=== PATIENT | female | born 1950 | race Two or more races ===

== ENCOUNTER 2024-11-18 16:09 | Emergency (ER) | payer OTHER, SELFPAY ==
[2024-11-18 16:42] VITALS: BP 94/58; PULSE 96; RESP 20; TEMP 37.3; O2SAT 90
--- NOTE | 2024-11-18 16:47 | EKG_ITS ---
[facility] Test Date: 2024-11-18 Pat Name: JOVANY REYES Department: Room: - Gender: Female Staff Physical Therapist: : 1950 Requested By: Earlene Barrett ([facility]) [facility] Order Number: [id number] Reading MD: Earlene Barrett ([facility]) [facility] Measurements Intervals [place] Rate: 94 P: 62 NC: 158 QRS: -42 QRSD: 113 T: 85 QT: 373 QTc: 467 Interpretive Statements SINUS RHYTHM LEFT AXIS DEVIATION [QRS AXIS < -30] INCOMPLETE RIGHT BUNDLE BRANCH BLOCK [90+ ms QRS DURATION, TERMINAL R IN V1/V2, 40+ ms S IN I/aVL/V4/V5/V6] SEPTAL MYOCARDIAL INFARCTION , PROBABLY OLD [40+ ms Q WAVE IN V1/V2] Compared to ECG 07/15/2021 10:59:02 Left-axis deviation now present Myocardial infarct finding still present /store/S0/[id number]/[id number]
--- NOTE | 2024-11-18 16:47 | XR_ITS ---
Examination: CT brain head without contrast. 2-D sagittal coronal reconstructions Date and time of exam:November 18, 2024 1808 hours INDICATIONS: Altered mental status today CTDI: vol (mGy):43.3 DLP: (mGycm):865 Technique: Multiple CT axial sections of the brain have been obtained, 5 mm slice thickness. Contrast has not been administered. 2-D sagittal, coronal reconstructions have been obtained Low dose protocols were performed. One or more of the following dose reduction techniques were used; automated exposure control, adjustment of the mA and/or KV according to patient size, use of iterative reconstruction technique. Findings: No significant ventricular enlargement. Calcification in the right caudate nucleus and left basal ganglia Intra-axial or extra-axial hemorrhage density is not seen. No mass effect or midline shift Basal cisterns are not remarkable. Fourth ventricle is midline. Cranial vault intact. Impression: Negative for acute hemorrhage, mass effect or midline shift Advise clinical correlation and follow up accordingly
--- NOTE | 2024-11-18 16:48 | PD.EDRME ---
Rapid Medical Screening Exam RME Arrival date/time: 11/18/24 16:09 74-year-old female presents to the emergency department accompanied with family members for complaints of generalized weakness, dizziness uncontrolled glucose x 3 days. I have greeted and performed a focused initial assessment of this patient. Initial appropriate labs ordered at this time. A comprehensive ED assessment and evaluation of the patient and analysis of all test and completion of medical decision making process will be conducted by additional ED provider. Chief Complaint: General Adult/Misc Complain Time Seen by Provider: 11/18/24 16:31 Vital signs: Vital Signs Temperature 99.1 F 11/18/24 16:42 Pulse Rate 96 11/18/24 16:42 Respiratory Rate 20 11/18/24 16:42 Blood Pressure 94/58 L 11/18/24 16:42 Pulse Oximetry (%) 90 L 11/18/24 16:42 Oxygen Delivery Method Room Air 11/18/24 16:42
[2024-11-18 16:54] VITALS: BP 107/61
[2024-11-18 17:26] VITALS: BMI 23.8
[2024-11-18 17:26] LABS: Lactate (Lactic Acid) 1.1 mMol/L (0.4-2.0)
[2024-11-18 17:28] LABS: Basophils # (Auto) 0.1 Thou/mm3 (0.0-0.2); Basophils % (Auto) 1 % (0-2.5); Eosinophils % (Auto) 0 % (0-10); Hematocrit 30.3 % (36.0-46.0); Hemoglobin 10.6 g/dL (12.0-16.0); Immature Granulocytes % (Auto) 1 % (0-0); Immature Granulocytes Auto 0.07 Thou/mm3 (0.00-0.00); Lymphocytes # (Auto) 0.6 Thou/mm3 (1.0-4.8); Lymphocytes % (Auto) 7 % (10-50); Mean Corpuscular Hemoglobin 28.1 pg (25.0-35.0); Mean Corpuscular Volume 80 fL (80-100); Monocytes # (Auto) 0.5 Thou/mm3 (0.0-0.8); Monocytes % (Auto) 5 % (0-12); Neutrophils # (Auto) 8.5 Thou/mm3 (1.8-7.7); Neutrophils % (Auto) 87 % (37-80); Nucleated Red Blood Cell % 0 /100 WBC (0); Platelet Count 225 Thou/mm3 (140-440); RDW Standard Deviation 39.6 fL (36.4-46.3); Red Blood Count 3.77 Miln/mm3 (4.00-5.20); White Blood Count 9.8 Thou/mm3 (3.6-11.0)
--- NOTE | 2024-11-18 17:29 | EDNOTE_ITS ---
ED General RME/HPI General Chief complaint: General Adult/Misc Complain Stated complaint: BODY HURTS , UNABLE TO STAND, FEVER; SEEN BY PCP Time Seen by Provider: 11/18/24 16:31 Arrival date/time: 11/18/24 16:09 RME / HPI RME / HPI narrative: 74-year-old female patient with significant history of hypertension diabetes mellitus, came in for evaluation regarding generalized bodyaches, generalized body weakness, and chills. Patient was sent to us by PCP for further evaluation. Patient was also noted to be slightly confused earlier today denies any cough denies any abdominal pain denies any other complaints no medication was taken prior to arrival. Related Data Previous Rx's ?Medication ?Instructions ?Recorded cefuroxime axetil 500 mg tablet 500 mg PO BID #14 tabs 11/18/24 Allergies Allergy/AdvReac Type Severity Reaction Status Date / Time No Known Allergies Allergy Verified 11/18/24 16:13 Review of Systems Review of Systems Narrative Review of Systems: Review of system reviewed and within normal limits except mentioned in HPI ED Exam Narrative Physical exam: VITAL SIGNS: Reviewed. GENERAL APPEARANCE: Alert and interactive, follows commands, no acute distress, HEAD AND FACE: Non-traumatic. ENT: PERRL, pink conjunctivitis, eyelid no trauma, Mucous membrane moist. NECK: Supple, nontender, no nuchal rigidity. CHEST: No tenderness, no crepitus, no paradoxical movement, no retractions. LUNGS: Clear, well ventilated, symmetric, no rales, no wheezing, no ronchi, no stridor, good breath sounds bilaterally. HEART: Regular rate, regular rhythm, no murmur, no gallops. ABDOMEN: Soft, positive bowel sounds, nondistended, no guarding, nontender, no rebound, no masses, RECTAL: Deferred. GENITAL: Deferred. NEUROLOGICAL: Gross motor function intact sensory function intact, Appropriate for age. MUSCULOSKELETAL: low back nontender, full range of motion. EXTREMITIES: Nontender, full range of motion. SKIN: Color pink, dry, no rash, no lacerations, no abrasions, no contusions. LYMPHATICS: Deferred. Course Quality Measures none Orders Category Date Time Status Bedside Blood Glucose NOW Care 11/18/24 16:47 Active Bedside COVID-19 Antigen Test NOW Care 11/18/24 16:48 Active Bedside Influenza A&B Antigen Test NOW Care 11/18/24 16:48 Completed EKG (ED ONLY) *Do not use* NOW Care 11/18/24 16:47 Completed In and Out Catheter X1 Care 11/18/24 16:47 Active Insert IV NOW Care 11/18/24 16:47 Active NPO NOW Care 11/18/24 16:[address] head/brain wo con Stat Exams 11/18/24 16:47 Completed EKG (ED Only) Stat Exams 11/18/24 16:47 Draft Acetaminophen Stat Lab 11/18/24 17:05 Completed Alcohol, Blood Medical Stat Lab 11/18/24 17:05 Completed Ammonia Stat Lab 11/18/24 17:05 Completed Blood Culture (Lab) Stat Lab 11/18/24 17:10 Received CBC Stat Lab 11/18/24 17:05 Completed Comprehensive Metabolic Panel Stat Lab 11/18/24 17:05 Completed Drug Screen,Urine Stat Lab 11/18/24 19:45 Received Lactate (Lactic Acid) Stat Lab 11/18/24 17:05 Completed Procalcitonin Stat Lab 11/18/24 17:05 Completed Prothrombin Time with INR Stat Lab 11/18/24 17:05 Completed Troponin I Stat Lab 11/18/24 17:05 Completed Urinalysis Stat Lab 11/18/24 19:45 Completed Sodium Chloride 0.9% 1000 ml [Ns] 1,000 ml Med 11/18/24 17:29 Discontinued IV 999 mls/hr cefTRIAXone/D5w 1gm IV premix [Rocephin/D5w 1gm IV Med 11/18/24 20:18 Active premix] 1 gm in 50 ml IV X1 Vital Signs Vital signs: Vital Signs Temperature 99.1 F 11/18/24 16:42 Pulse Rate 96 11/18/24 16:42 Respiratory Rate 20 11/18/24 16:42 Blood Pressure 94/58 L 11/18/24 16:42 Pulse Oximetry (%) 90 L 11/18/24 16:42 Oxygen Delivery Method Room Air 11/18/24 16:42 [facility] Patient data External records reviewed:: None Clinical information provided by:: none Social determinants that could affect healthcare access:: none Patient has the following chronic illnesses:: Diabetes hypertension How is presenting disease/condition affected by chronic disease/condition?: e xacerbated by Evaluation data The following diagnostics were reviewed and interpreted by me:: lab results, radiology exam(s) and EKG tracing(s) Lab and/or radiology exams considered but not ordered:: None Interpretation Summary: See results in MDM Medications Medications considered but not ordered:: None Medication administrations:: Medication Administration History Ceftriaxone Sodium/Dextrose (Rocephin/D5w 1gm Iv Premix) 1 gm in 50 mls @ 100 mls/hr IV X1 ONE Stop: 11/18/24 20:47 Discontinued Medications Sodium Chloride (Ns) 1,000 mls @ 999 mls/hr IV .Q1H1M ONE Stop: 11/18/24 18:29 Last Admin: 11/18/24 18:32 Dose: 999 mls/hr Documented By: DB IV fluids, IV ceftriaxone Consultations Consultation(s) initiated? (list below): No Diagnosis Differential Diagnosis ED Complaint MDM: Generalized weakness, hypoglycemia, UTI Most likely diagnosis given after review of the tests above:: Generalized weakness, UTI Admission Indicated Admission indicated?: not indicated Explain why admission is indicated or not indicated:: Stable Admission Request Was there a request for admission?: No Disposition Plan Disposition Plan: Discharge Discharge Attestation Discharge Attestation: The patient and all family members were given an opportunity to ask questions and understood the discharge instructions. Discharge instructions specifically effects, indications for sooner follow up or return to the emergency department, and the expected course of current diagnosis. Patient condition: Stable Medical Decision Making MDM Narrative MDM Narrative: 74-year-old female patient with significant history of hypertension diabetes mellitus, came in for evaluation regarding generalized bodyaches, generalized body weakness, and chills. Patient was sent to us by PCP for further evaluation. Patient was also noted to be slightly confused earlier today denies any cough denies any abdominal pain denies any other complaints no medication was taken prior to arrival. CT scan of the head came back unremarkable. Laboratory workup all came back unremarkable except positive for UTI Pro-Mike slightly elevated creatinine is normal alkaline phos slightly elevated EKG showed normal sinus rhythm, ventricular rate of 94 bpm, no ST segment elevation depression noted. Family verbalized that patient was just recently started on Jardiance, and every time patient took the Jardiance patient was noted to be complaining of generalized weakness. I asked the family to stop taking the Jardiance until they discuss with the PCP. Patient received ceftriaxone IV. Patient appears nontoxic and hemodynamically stable. Patient discharged home and instructed to follow-up with primary care provider in 24 to 48 hours. Instructed to return to the emergency department immediately if worsening of symptoms Differential Diagnosis Differential Diagnosis: Generalized weakness, hypoglycemia, UTI Lab Data 11/18/24 17:05 11/18/24 17:05 Labs: Lab Results 11/18/24 11/18/24 Range/Units 17:05 19:45 WBC 9.8 (3.6-11.0) Thou/mm3 RBC 3.77 L (4.00-5.20) Miln/mm3 Hgb 10.6 L (12.0-16.0) g/dL Hct 30.3 L (36.0-46.0) % MCV 80 (80-100) fL MCH 28.1 (25.0-35.0) pg MCHC 35.0 (31.0-37.0) g/dl RDW Std Deviation 39.6 (36.4-46.3) fL Plt Count 225 (140-440) Thou/mm3 Neut % (Auto) 87 H (37-80) % Lymph % (Auto) 7 L (10-50) % Tripp % (Auto) 5 (0-12) % Eos % (Auto) 0 (0-10) % Baso % (Auto) 1 (0-2.5) % Neut # (Auto) 8.5 H (1.8-7.7) Thou/mm3 Lymph # (Auto) 0.6 L (1.0-4.8) Thou/mm3 Tripp # (Auto) 0.5 (0.0-0.8) Thou/mm3 Eos # (Auto) 0.0 (0.0-0.5) Thou/mm3 Baso # (Auto) 0.1 (0.0-0.2) Thou/mm3 Immature Gran # (Auto) 0.07 H (0.00-0.00) Thou/mm3 Absolute Nucleated RBC 0.00 (0.00-0.00) Thou/mm3 Immature Gran % 1 H (0-0) % Nucleated RBC % 0 (0) /100 WBC PT 13.2 H (9.0-12.2) Seconds INR 1.2 (0.9-1.3) Sodium 130 L (136-145) mMol/L Potassium 4.1 (3.4-5.1) mMol/L Chloride 101 (98-107) mMol/L Carbon Dioxide 21.2 (20.0-31.0) mMol/L Anion Gap 8 (7-16) BUN 17 (9-23) mg/dL Creatinine 0.9 (0.6-1.3) mg/dL Estim Creat Clear Calc 42.1 L (>60) mL/min eGFR > 60 (60 - ) See Note BUN/Creatinine Ratio 19 (12-20) Ratio Glucose 86 (74-106) mg/dL Calculated Osmolality 261 L (275-295) Lactic Acid 1.1 (0.4-2.0) mMol/L Calcium 8.7 (8.3-10.6) mg/dL Corrected Calcium 9.3 (8.5-10.1) mg/dL Total Bilirubin 0.5 (0.3-1.2) mg/dL AST 41 H (0-34) U/L ALT 20 (10-49) U/L Alkaline Phosphatase 221 H (46-116) U/L Ammonia < 10 L (11-32) uMol/L Troponin I 0.023 (0.0-0.045) ng/mL Total Protein 6.5 (5.7-8.2) gm/dL Albumin 3.3 L (3.4-4.8) gm/dL Globulin 3.2 (2.3-3.5) gm/dL Albumin/Globulin Ratio 1.0 L (1.2-2.2) Procalcitonin 1.50 H (0.0-0.49) ng/ml Ur Collection Type Clean Catch Urine Color Yellow (Lt Yel-Yel) Urine Clarity Clear (Clear/Hazy) Urine pH 6.0 (5.0-7.0) Ur Specific [place] 1.019 (1.001-1.035) Urine Protein Trace (Neg - Trace) Urine Glucose (UA) 4+ A (Negative) Urine Ketones 1+ A (Negative) Urine Blood Trace (Negative) Urine Nitrite Negative (Negative) Urine Bilirubin Negative (Negative) Urine Urobilinogen (Auto) Negative (0.0-1.0) mg/dL Ur Leukocyte Esterase Positive (Negative) Urine RBC 4 H (0-3) /hpf Urine WBC 11 H (0-5) /hpf Ur Squamous Epith Cells 3 (0-5) /hpf Urine Bacteria 1+ A (None) Acetaminophen < 2.0 L (10.0-20.0) mcg/mL Ethyl Alcohol < 3.0 (0-10.0) mg/dL Discharge Plan Plan Patient Disposition: HOME (Self Care) Disposition Comment: Stable Prescriptions/Referrals Prescriptions/Med Rec: New cefuroxime axetil 500 mg tablet 500 mg PO BID Qty: 14 0RF Referrals: Imtiaz Power [Primary Care Provider] - In 1 week Problem List Clinical Impression: UTI (urinary tract infection), Weakness generalized Patient/Caregiver Discharge Instructions Discharge Activity: activity as tolerated Education Materials: Understanding Urinary Tract ... Additional Instructions: Thank you for the opportunity for serving you today. You are stable for discharged . You are advised to: Follow-up with your PCP in 1 to 2 days Return to ED for worsening of symptoms Increase oral fluids Take medication as prescribed Do not take your Jardiance until you talk to your PCP which could be the reason why your blood sugar is dropping fast Print Language: Greenlandic Stand Alone Forms: Luann Award Info., Patient Portal Info Letter KAMILAH/LONNY Supervising Physician KAMILAH/LONNY Supervising Physician: MD Aziza
[2024-11-18 17:48] LABS: INR 1.2 (0.9-1.3); Prothrombin Time 13.2 Seconds (9.0-12.2)
[2024-11-18 17:55] LABS: Acetaminophen < 2.0 mcg/mL (10.0-20.0); Alanine Aminotransferase 20 U/L (10-49); Albumin, Serum 3.3 gm/dL (3.4-4.8); Alcohol, Blood Medical < 3.0 mg/dL (0-10.0); Alkaline Phosphatase 221 U/L (46-116); Ammonia < 10 uMol/L (11-32); Anion Gap 8 (7-16); Aspartate Amino Transferase 41 U/L (0-34); BUN/Creatinine Ratio 19 Ratio (12-20); Bilirubin,Total 0.5 mg/dL (0.3-1.2); Blood Urea Nitrogen 17 mg/dL (9-23); Calcium 8.7 mg/dL (8.3-10.6); Calcium (Corrected) 9.3 mg/dL (8.5-10.1); Carbon Dioxide 21.2 mMol/L (20.0-31.0); Chloride 101 mMol/L (98-107); Creatinine (Component) 0.9 mg/dL (0.6-1.3); Estimated Creatinine Clearance 42.1 mL/min (>60); Globulin 3.2 gm/dL (2.3-3.5); Glucose 86 mg/dL (74-106); Osmolality,Calculated 261 (275-295); Potassium 4.1 mMol/L (3.4-5.1); Sodium 130 mMol/L (136-145); Total Protein 6.5 gm/dL (5.7-8.2); Troponin I 0.023 ng/mL (0.0-0.045); eGFR > 60 See Note
[2024-11-18 18:20] VITALS: BP 89/58; BP 91/55; PULSE 90; PULSE 91; RESP 16; TEMP 36.9; O2SAT 91; O2SAT 95
[2024-11-18] MEDS: SODIUM CHLORIDE 0.9% 1000 ML 1,000 ML 999 ML IV (18:32)
[2024-11-18 19:00] VITALS: BP 109/61; PULSE 98; O2SAT 92
[2024-11-18 19:54] LABS: Collection Type, Urine Clean Catch
[2024-11-18 20:00] VITALS: BP 92/56; PULSE 96; O2SAT 91
[2024-11-18 20:14] LABS: Bacteria,Urine 1+; Bilirubin,Urine Negative (Negative); Blood,Urine Trace (Negative); Clarity,Urine Clear (Clear/Hazy); Color,Urine Yellow (Lt Yel-Yel); Glucose, Urine 4+ (Negative); Ketones,Urine 1+ (Negative); Leukocyte Esterase,Urine Positive (Negative); Nitrite,Urine Negative (Negative); Protein,Urine Trace (Neg - Trace); RBC,Urine 4 /hpf (0-3); Specific Gravity,Urine 1.019 (1.001-1.035); Squamous Epithelial Cell,Urine 3 /hpf (0-5); Urobilinogen,Urine Negative mg/dL (0.0-1.0); WBC,Urine 11 /hpf (0-5)
[2024-11-18] MEDS: cefTRIAXone/D5w 1gm IV premix 1 GM/50 ML BAG IV (20:59)
[2024-11-18 21:00] VITALS: BP 84/51; PULSE 87; O2SAT 92
[2024-11-18 21:13] LABS: Amphetamine/Methamp Scrn,U Negative (Negative); Barbiturate Screen,Urine Negative (Negative); Benzodiazepines Screen,Urine Negative (Negative); Benzoylecgonine Screen, Ur Negative (Negative); Fentanyl Screen,Urine Positive (Negative); Opiate Screen,Urine Negative (Negative); THC Screen,Urine Negative (Negative)
== END 2024-11-18 20:30 | disposition home or self-care (01) ==
PROVIDERS: Nurse Practitioner Primary Care; Emergency Provider Emergency Medicine; PCP Physician Assistant
DX: R53.1 Weakness (principal); N39.0 Urinary tract infection, site not specified; R41.82 Altered mental status, unspecified; I45.10 Unspecified right bundle-branch block; I10 Essential (primary) hypertension
CPT/HCPCS: 36415; 70450; 80053; 80307; 80320; 80329; 81001; 82140; 83605; 84145; 84484; 85025; 85610; 87040; 87400; 87811; 93005; 96361; 96365; 99284; J0696; J7030; G0480

== ENCOUNTER 2024-11-19 22:20 | Inpatient (IN) | payer OTHER, MEDICAID, MEDICARE, SELFPAY ==
[2024-11-19 22:32] VITALS: BP 96/53; PULSE 112; RESP 26; TEMP 36.9; O2SAT 86
[2024-11-19 22:43] VITALS: BMI 23.7
[2024-11-19 22:49] VITALS: PULSE 111; PULSE 114; RESP 25; RESP 84; O2SAT 96; O2SAT 98
[2024-11-19] MEDS: ALBUTEROL/IPRATROPIUM (Duoneb) RT SOL 3 ML NEBU INH (22:49)
--- NOTE | 2024-11-19 23:06 | EKG_ITS ---
[facility] Test Date: 2024-11-19 Pat Name: JOVANY REYES Department: Room: - Gender: Female Med Aide: : 1950 Requested By: Sanaz Tinsley Order Number: [id number] Reading MD: Sanaz Tinsley Measurements Intervals [place] Rate: 122 P: 60 [place]: 151 QRS: -36 QRSD: 114 T: 93 QT: 315 QTc: 449 Interpretive Statements SINUS TACHYCARDIA LEFT AXIS DEVIATION [QRS AXIS < -30] ANTEROSEPTAL MYOCARDIAL INFARCTION , OF INDETERMINATE AGE [40+ ms Q WAVE IN V1-V4] MODERATE T-WAVE ABNORMALITY, CONSIDER LATERAL ISCHEMIA [-0.1+ mV T-WAVE IN I/aVL/V5/V6] Compared to ECG 11/18/2024 17:15:55 T-wave abnormality now present Possible ischemia now present Sinus rhythm no longer present Incomplete right bundle-branch block no longer present Myocardial infarct finding still present /store/S0/[id number]/ecg/[id number].pdf
--- NOTE | 2024-11-19 23:07 | XR_ITS ---
Examination: AP chest single view TECHNIQUE: AP portable upright chest single view Exam date and time: November 19, 2024 11:13 PM INDICATIONS: Sepsis liver. FINDINGS: Bilateral pneumonia, diffuse and prominent in the left lung Normal heart size The osseous structures are intact IMPRESSION: Bilateral pneumonia, diffuse and prominent in the left lung
--- NOTE | 2024-11-19 23:08 | PD.EDCHEST ---
ED Chest Pain RME/HPI General Chief Complaint: Chest Pain Stated Complaint: COUGH, CONGESTION, PAIN IN CHEST Time Seen by Provider: 11/19/24 23:04 Source: patient, family and EMS Arrival date/time: 11/19/24 22:20 Mode of arrival: EMS Limitations: no limitations RME / HPI RME / HPI narrative: Dr. Ervin?s Main ED Evaluation: 74-year-old female with history of hypertension, brought in by EMS accompanied by her daughter due to worsening respiratory symptoms. She reports a 2-day history of a productive cough with white sputum, which acutely worsened today and became associated with shortness of breath and audible wheezing. She denies chest pain, nausea, vomiting, diarrhea, or recent travel. No known sick contacts. Although she has a remote history of smoking, she is currently a non-smoker. Related Data Previous Rx's ?Medication ?Instructions ?Recorded cefuroxime axetil 500 mg tablet 500 mg PO BID #14 tabs 11/18/24 Allergies Allergy/AdvReac Type Severity Reaction Status Date / Time No Known Allergies Allergy Verified 11/18/24 16:13 Review of Systems Review of Systems Systems Reviewed: All systems reviewed, normal except as documented Past Medical History Past Medical History CARDIAC: Negative Hypercholesterolemia, Congestive Heart Failure or Hypertension RESPIRATORY: Negative Chronic Obstructive Pulmonary Disease (COPD) GENITOURINARY: Negative Renal Disease REPRODUCTIVE: Positive Breast Cancer ENDOCRINE: Positive Diabetes Mellitus Type 2; Negative Diabetes Mellitus Type 1 OTHER HISTORY: Positive Cancer and Breast Cancer Social History SMOKING STATUS: Never smoker ED Exam General Limitations: Present no limitations General appearance: Present alert and in no apparent distress Head Head exam: Present atraumatic Eye Eye exam: Present normal appearance, PERRL and EOMI ENT ENT exam: Present normal exam, normal oropharynx and mucous membranes moist Neck Neck exam: Present normal inspection, full ROM and trachea midline Chest Chest inspection: Present normal inspection and symmetric chest wall rise Respiratory Respiratory exam: Present normal lung sounds bilaterally Cardiovascular Cardiovascular exam: Present regular rate, normal rhythm and normal heart sounds Abdominal Exam Abdominal exam: Present soft and normal bowel sounds Extremities Exam Extremities exam: Present normal inspection and full ROM Back Exam Back exam: Present normal inspection and full ROM Neurological Exam Neurological exam: Present alert, oriented X3 and CN II-XII intact Psychiatric Psychiatric exam: Present normal affect and normal mood Skin Skin exam: Present warm, dry, intact and normal color Course Course Course Narrative: 2308 Sepsis alert initiated. Orders made at this time are congruent with ED Adult Sepsis Order List. Re-evaluation is to be completed. Patient likely CHF with bilateral wheezing, rales, and pedal edema. This time the patient will not benefit from the 30 mL/kg IV bolus. 2348 Sepsis reassessment performed consisting of lab review, vitals, physical exam including auscultation of heart, lungs, and visual evaluation of capillary refills, mucosal membranes and extremities. Quality Measures Current suspected stage: sepsis Possible source: pulmonary Blood cultures ordered: yes Antibiotic ordered: Yes Pertinent labs: 11/19/24 23:26 Lactic Acid 3.4 H mMol/L (0.4-2.0) Procalcitonin 3.30 H ng/ml (0.0-0.49) sepsis Orders Category Date Time Status Admit to Inpatient Status Routine Admission 11/20/24 01:04 Active Bedside COVID-19 Antigen Test NOW Care 11/19/24 23:04 Active COVID-19 Screening Questionnaire NOW Care 11/20/24 00:47 Active Orthotist Or Prosthetist STAT Care 11/19/24 23:06 Active Continuous Pulse Oximetry STAT Care 11/19/24 23:06 Completed Decision to Admit X1 Care 11/20/24 00:47 Completed EKG (ED ONLY) *Do not use* NOW Care 11/19/24 23:06 Completed In and Out Catheter X1PRN Care 11/19/24 23:06 Active Insert IV NOW Care 11/19/24 23:06 Active NPO STAT Care 11/19/24 23:06 Active Strict Intake and Output Routine Care 11/19/24 23:06 Ordered CA echo doppler complete Routine Exams 11/20/24 01:[address] chest wo con Stat Exams 11/20/24 01:00 Ordered EKG (ED Only) Stat Exams 11/19/24 23:06 Draft XR chest 1V SEPSIS PROTOCOL Stat Exams 11/19/24 23:07 Completed ABG [Arterial Blood Gas] Stat Lab 11/20/24 01:13 Completed B-Type Natriuretic Peptide Stat Lab 11/19/24 23:26 Completed Blood Culture (Lab) Stat Lab 11/19/24 23:26 Received CBC Stat Lab 11/19/24 23:26 Completed Comprehensive Metabolic Panel Stat Lab 11/19/24 23:26 Completed Influenza A & B Rapid Panel Stat Lab 11/19/24 23:05 Ordered LDH (Lactate Dehydrogenase) Stat Lab 11/19/24 23:26 Completed Lactate (Lactic Acid) Stat Lab 11/19/24 23:26 Results Lipase Stat Lab 11/19/24 23:26 Completed Magnesium Stat Lab 11/19/24 23:26 Completed Partial Thromboplastin Time Stat Lab 11/19/24 23:26 Completed Phosphorous Stat Lab 11/19/24 23:26 Completed Procalcitonin Stat Lab 11/19/24 23:26 Completed Prothrombin Time with INR Stat Lab 11/19/24 23:26 Completed RSV [Respiratory Syncytial Virus Ag] Stat Lab 11/19/24 23:05 Ordered Troponin I Stat Lab 11/19/24 23:26 Completed Urinalysis Stat Lab 11/19/24 23:41 Completed Urine Culture Stat Lab 11/19/24 23:41 Received Albuterol/Ipratr Rt Jillian [Duoneb Rt Jillian] Med 11/19/24 22:38 Discontinued 3 ml INH X1 ONE Azithromycin Inj [Zithromax Inj] 500 mg Med 11/20/24 00:47 Active Sodium Chloride 0.9% 250 ml [Ns] 250 ml IV X1 Furosemide [Lasix Inj] Med 11/19/24 23:11 Discontinued 20 mg IVP X1 ONE Furosemide [Lasix Inj] Med 11/20/24 01:33 Discontinued 20 mg IVP X1 ONE MethylPREDNISolone.* [SoluMEDROL Inj] Med 11/19/24 23:09 Discontinued 125 mg IVP X1 ONE cefTRIAXone/D5w 1gm IV premix [Rocephin/D5w 1gm IV Med 11/20/24 00:47 Discontinued premix] 1 gm in 50 ml IV X1 BiPAP / CPAP NEEDED RT 11/20/24 23:10 Active Oxygen Delivery NOW RT 11/19/24 23:06 Active Vital Signs Vital signs: Vital Signs Temperature 98.4 F 11/19/24 22:32 Pulse Rate 112 H 11/19/24 22:32 Respiratory Rate 26 H 11/19/24 22:32 Blood Pressure 96/53 L 11/19/24 22:32 Pulse Oximetry (%) 86 L 11/19/24 22:32 Oxygen Delivery Method Room Air 11/19/24 22:32 Chest Pain MDM Narrative MDM Narrative:: ED course: Patient mainly placed in bed. Patient complaining of cough and wheezing in the last 24 hours increased respiratory distress today. Differential diagnosis includes CHF exacerbation, sepsis secondary pneumonia, septic shock, UTI, [facility] pneumonia, pulmonary embolism. ED course: Patient was on BiPAP. Chronically the patient presents with CHF and 20 mg of Lasix given IV. Chest x-ray shows bilateral pneumonia and CHF. BiPAP has helped with her respiratory distress. Gallo is placed and--urine output is obtained. Labs reviewed. White count is 9.4 and otherwise hemoglobin is 11/33, platelets are 244. Mild hypokalemia. Electrolytes show sodium 128 and otherwise the other electrolytes are normal to include liver function test. Swabs are interpreted reviewed by me. Influenza A, B, and COVID are negative. EKG shows no ST elevation [place] or depressions. Troponin is less than 0.020 Lactate and procalcitonin are reviewed and are abnormal. This is interpreted and reviewed by me lactate of 3.4 and a procalcitonin of 3.3. Patient is treated with ceftriaxone and azithromycin. 0051: History, physical exam, checks x-ray findings are discussed with the resident on-call working with Dr. Bronson. He accepts the patient for admission. Clinical diagnosis: Community-acquired multilobar pneumonia, acute respiratory distress, sepsis, CHF Disposition: Emergency Department nursing documentation was reviewed including triage complaint, associated symptoms, administration of medications, response to therapy and vital signs. Given the history, physical exam, and review of laboratory and imaging studies the patient is determined to be unsafe for discharge and is being moved into the hospital for further diagnostic tests, treatments, stabilization, and monitored response to therapy. I communicated the history, physical exam, pertinent laboratory and imaging studies to the inpatient resident physician. The inpatient physician has access to electronic copies of all emergency department laboratory testing and imaging studies as well as medications ordered and administered. Scribe Attestation: I, Amarilis Duenas, am scribing for and in the presence of Dr. Ervin. Provider Notation: Although this document has been carefully reviewed, there may still be some phonetic and other typographical errors. These errors are purely grammatical due to imperfections in the software program and should not be construed in any way to compromise the substance of the patient's medical care during this visit. Patient data External records reviewed:: [facility] previous records and EMS form Clinical information provided by:: patient, EMS and family Social determinants that could affect healthcare access:: none Patient has the following chronic illnesses:: see PMH How is presenting disease/condition affected by chronic disease/condition?: uneffected by Evaluation data The following diagnostics were reviewed and interpreted by me:: lab results and radiology exam(s) Lab and/or radiology exams considered but not ordered:: n/a Interpretation Summary: see MDM narrative Medications / Prescriptions Medications or Prescriptions considered but not ordered:: n/a Medication administrations:: Medication Administration History Azithromycin 500 mg/ Sodium (Chloride) 250 mls @ 250 mls/hr IV X1 ONE Stop: 11/20/24 01:46 Last Admin: 11/20/24 01:22 Dose: 250 mls/hr Documented By: SEVERIANO Discontinued Medications Albuterol/Ipratropium (Albuterol/Ipratropium (Duoneb) Rt Jillian 3 Ml Nebu) 3 ml INH X1 ONE Stop: 11/19/24 22:39 Last Admin: 11/19/24 22:49 Dose: 3 ml Documented By: LUIS Furosemide (Furosemide Inj 10 Mg/Ml Vial 2 Ml) 20 mg IVP X1 ONE Stop: 11/19/24 23:12 Last Admin: 11/19/24 23:49 Dose: 20 mg Documented By: SEVERIANO Furosemide (Furosemide Inj 10 Mg/Ml Vial 2 Ml) 20 mg IVP X1 ONE Stop: 11/20/24 01:34 Ceftriaxone Sodium/Dextrose (Rocephin/D5w 1gm Iv Premix) 1 gm in 50 mls @ 100 mls/hr IV X1 ONE Stop: 11/20/24 01:16 Methylprednisolone Sodium Succinate (Methylprednisolone Sod Succ 62.5 Mg/Ml 2ml Vial) 125 mg IVP X1 ONE Stop: 11/19/24 23:10 Last Admin: 11/19/24 23:49 Dose: 125 mg Documented By: EF as above Consultations Consultation(s) initiated? (list below): Yes Consultation #1 (Physician, Specialty, Details): see MDM narrative Diagnosis Chest Pain Differential Diagnosis: other (see MDM narrative) Most likely diagnosis given after review of the tests above:: see MDM narrative Admission Indicated Admission indicated?: indicated Admission Request Was there a request for admission?: Yes Admission Attestation Admission request attestation: Discussed case with Dr. Bronson from Hospitalist service regarding admission. Discussed patients ED course, exam findings, labs, and radiology results. The Hospitalist [agrees] to accept the patient for admission. Disposition Plan Disposition Plan: Admit Discharge Plan Plan Patient Disposition: Admit Acute Care w/in Hospital Prescriptions/Referrals Prescriptions/Med Rec: No Action cefuroxime axetil 500 mg tablet 500 mg PO BID Qty: 14 0RF Problem List Clinical Impression: Sepsis, Pneumonia, Acute CHF, Acute respiratory distress, Acute hyponatremia Patient/Caregiver Discharge Instructions Print Language: Slovenian Stand Alone Forms: Luann Award Info., Patient Portal Info Letter
[2024-11-19 23:18] VITALS: PULSE 129; RESP 16; RESP 39; O2SAT 96
[2024-11-19 23:29] VITALS: PULSE 118; RESP 97
[2024-11-19 23:46] LABS: Lactate (Lactic Acid) 3.4 mMol/L (0.4-2.0)
[2024-11-19 23:49] VITALS: BP 104/64; PULSE 118
[2024-11-19] MEDS: MethylPREDNISolone SOD SUCC 62.5 MG/ML 2ML VIAL 125 MG IVP (23:49)
[2024-11-19] MEDS: FUROSEMIDE INJ 10 MG/ML VIAL 2 ML 20 MG IVP (23:49)
[2024-11-19 23:54] LABS: Collection Type, Urine Catheter
[2024-11-20] VITALS (15 sets, daily range): BP systolic 94–110; BP diastolic 56–68; PULSE 83–117; RESP 14–96; TEMP 35.9–36.8; O2SAT 95–100; BMI 23.6
[2024-11-20 00:05] LABS: Basophils % (Auto) 0 % (0-2.5); Eosinophils % (Auto) 0 % (0-10); Hematocrit 33.3 % (36.0-46.0); Hemoglobin 11.4 g/dL (12.0-16.0); INR 1.4 (0.9-1.3); Immature Granulocytes % (Auto) 1 % (0-0); Immature Granulocytes Auto 0.05 Thou/mm3 (0.00-0.00); Lymphocytes # (Auto) 0.4 Thou/mm3 (1.0-4.8); Lymphocytes % (Auto) 4 % (10-50); Mean Corpuscular HGB Conc 34.2 g/dl (31.0-37.0); Mean Corpuscular Hemoglobin 27.9 pg (25.0-35.0); Mean Corpuscular Volume 81 fL (80-100); Monocytes # (Auto) 0.1 Thou/mm3 (0.0-0.8); Monocytes % (Auto) 1 % (0-12); Neutrophils # (Auto) 8.9 Thou/mm3 (1.8-7.7); Neutrophils % (Auto) 94 % (37-80); Nucleated Red Blood Cell % 0 /100 WBC (0); Partial Thromboplastin Time 36.5 Seconds (22.0-36.0); Platelet Count 244 Thou/mm3 (140-440); Prothrombin Time 15.2 Seconds (9.0-12.2); RDW Standard Deviation 41.1 fL (36.4-46.3); Red Blood Count 4.09 Miln/mm3 (4.00-5.20); White Blood Count 9.4 Thou/mm3 (3.6-11.0)
[2024-11-20 00:20] LABS: Alanine Aminotransferase 36 U/L (10-49); Albumin, Serum 3.4 gm/dL (3.4-4.8); Albumin/Globulin Ratio 1.1 (1.2-2.2); Alkaline Phosphatase 287 U/L (46-116); Anion Gap 10 (7-16); Aspartate Amino Transferase 51 U/L (0-34); BUN/Creatinine Ratio 17 Ratio (12-20); Bilirubin,Total 0.8 mg/dL (0.3-1.2); Blood Urea Nitrogen 17 mg/dL (9-23); Calcium 8.4 mg/dL (8.3-10.6); Calcium (Corrected) 8.9 mg/dL (8.5-10.1); Carbon Dioxide 20.1 mMol/L (20.0-31.0); Chloride 98 mMol/L (98-107); Estimated Creatinine Clearance 37.9 mL/min (>60); Globulin 3.2 gm/dL (2.3-3.5); Glucose 253 mg/dL (74-106); LDH (Lactate Dehydrogenase) 224 U/L (120-246); Lipase 24 U/L (12-53); Magnesium 1.6 mg/dL (1.6-2.6); Osmolality,Calculated 267 (275-295); Phosphorous 2.5 mg/dL (2.4-5.1); Sodium 128 mMol/L (136-145); Total Protein 6.6 gm/dL (5.7-8.2); Troponin I < 0.020 ng/mL (0.0-0.045); eGFR 58 See Note
[2024-11-20 00:34] LABS: B-Type Natriuretic Peptide 1031 pg/mL (0-100)
--- NOTE | 2024-11-20 01:00 | XR_ITS ---
Examination: CT chest, without intravenous contrast. Sagittal and coronal 2-D reconstructions. Exam date and time: November 20, 2024 at 0354 hours INDICATIONS: Shortness of breath this week, clinical diagnosis bilateral pneumonia on chest film November 19, 2024 CTDI:vol (mGy) 17.4 DLP: (mGycm) 555 Technique: Multiple 3.0 mm axial sections of the chest to been obtained. Bone and lung density settings are obtained. Sagittal and coronal 2-D reconstructions have been obtained. Low dose protocols were performed. One or more of the following dose reduction techniques were used; automated exposure control, adjustment of the mA and/or KV according to patient size, use of iterative reconstruction technique. Findings: Thoracic aortic calcification no aneurysmal dilatation Main pulmonary artery segment 30 mm Bilateral diffuse pneumonia, severe in the left lower lobe Mitral valvular calcification with mild enlargement cardiac contour No visualized liver splenic lesion Absent gallbladder No pancreatic or adrenal mass Significant scarring both kidneys Prominent osteopenia IMPRESSION: Bilateral pneumonia, severe in the left lower lobe
[2024-11-20 01:05] LABS: Bilirubin,Urine Negative (Negative); Blood,Urine Negative (Negative); Clarity,Urine Clear (Clear/Hazy); Color,Urine Lt-Yellow (Lt Yel-Yel); Glucose, Urine 4+ (Negative); Ketones,Urine Negative (Negative); Leukocyte Esterase,Urine Negative (Negative); Nitrite,Urine Negative (Negative); Protein,Urine Negative (Neg - Trace); RBC,Urine 2 /hpf (0-3); Squamous Epithelial Cell,Urine 1 /hpf (0-5); Urobilinogen,Urine Negative mg/dL (0.0-1.0); WBC,Urine 7 /hpf (0-5)
[2024-11-20 01:16] LABS: Base Excess -2 (-3-3); HCO3 21 mEq/L (20-26); Inspired Oxygen, FIO2 35 %; O2 Saturation 98 % (91-98); PCO2 31 mmHg (32.0-48.0); PO2 90 mmHg (83-108); pH, Arterial 7.44 (7.35-7.45)
[2024-11-20 01:17] LABS: Allen Test Performed/OK; Puncture Site Right Radial
[2024-11-20] MEDS: AZITHROMYCIN INJ 500 MG in SODIUM CHLORIDE 0.9% 250 ML 250 ML 250 MG IV ×2 (01:22→20:33)
--- NOTE | 2024-11-20 01:28 | PC.RT ---
PT removed from BiPAP despite sounding wet and increased RR . RT Advised against removal but MD believes PT Does not need BiPAP at this time. RR 34 currently.
--- NOTE | 2024-11-20 01:53 | PD.RESHP ---
Documentation for date of: 11/20/24 [facility] History of Present Illness History of present illness: Esther is a 74 y/o female with PMHx hypertension, hyperlipidemia, gey-kuftyay-khmsllgcn type 2 diabetes, breast cancer (s/p mastectomy) who comes in for an evaluation of shortness of breath, onset yesterday, and worsening with associated cough. Patient reports that she has been having worsening shortness of breath, however has not noticed any swelling in her legs. She does complain of fever, but no chest pain, vomiting, diarrhea, headache. Of note patient did come to the ED on the for complaint of dysuria and was discharged on antibiotics. This time she is having worsening shortness of breath medication with fevers. She denies having a bean dumper. She denies any recent travel or sick contacts. She lives with her daughter. She is able to walk on her own but does not use a cane and walks gingerly. Says her bowel movements are fine. no other complaints. ED course: Patient arrived to the ED with a temperature of 98.4, heart rate of 112, respiratory rate of 26, blood pressure 96/53, saturating 86% on room air. Patient was worked and was found to have sodium 128, potassium 4, BUN/creatinine seventeen and 1.0 respectively, bicarb 20, glucose of 53, white count 9.4, hemoglobin 1.4, troponin negative x 1, Pro-Mike 3.3, AST 5 ALT 36, phosphorus 2.5, magnesium 1.6, lactate 2.4, BNP 1031, urinalysis showed 7 white cells, +4 glucose.. ABG showed pH of 7.44, pCO2 of 31, pO2 of 98, bicarb 21. X-ray was done and showed bilateral pneumonia and significant pneumonia and left lung. EKG showed sinus tachycardia with left axis deviation. Patient was given DuoNebs x 1, Solu-Medrol 125, Lasix 20 mg IV and was put on BiPAP. Medicine was consulted patient admitted to floors PMHx: As above Surgeries: Mastectomy Meds: Voquenza 10 mg, Lexapro 10 mg, Jardiance 10 mg, Meclizine as needed Allergies: No known allergies Family Hx:Limited family history Social Hx: She lives with her daughter. No smoking, has never been from her or drug history. Review of Systems Review of Systems Narrative Review of Systems: Constitutional: + fever, no chills, fatigue, weakness, weight loss HEENT: No eye pain, vision loss, ear pain, hearing loss, dysphagia, Cardiovascular: No chest pain, palpitations, edema, pain with walking Respiratory: +cough, +shortness of breath, no wheezing GI: No NVD, abdominal pain, constipation, blood in stool, loss of appetite, heartburn Extremities: No presence of pitting edema MSK: No back pain, joint pain, joint swelling Neuro: No dizziness, numbness, weakness, headaches, seizures, tremors Psych: No anxiety, depression Exam Vital Signs Temp Pulse Resp BP Pulse Ox O2 Del Method O2 Flow Rate 97.7 F 109 H 24 H 100/59 L 97 BiPAP 6 11/20/24 00:26 11/20/24 00:26 11/20/24 00:26 11/20/24 00:26 11/20/24 00:26 11/20/24 00:26 11/19/24 22:49 FiO2 35 11/19/24 23:29 Narrative Exam General: AAOx3, in mild distress, chinese speaking elderly lady HEENT: Moist mucous membranes, conjunctiva clear, EOMI, PERRLA, Cardiovascular: Possible murmur heard over CATE, radial pulses +2 bilat, RRR Pulmonary: On biPAP, 12/5, RR 14, diffuse crackles heard over lung carroll bilat GI: No tenderness to light or deep palpitation, no guarding, rigidity, rebound tenderness or distension Extremities: Trace edema in lower extremities bilaterally, dorsalis pedis pulses +2 bilaterally Neuro: AAOx3, no focal motor or sensory deficits in the UE or LE bilat Psych: Good judgement, thought and behavior Results: Labs 11/20/24 02:55 11/20/24 02:55 Labs: Short CBC 11/19/24 Range/Units 23:26 WBC 9.4 (3.6-11.0) Thou/mm3 Hgb 11.4 L (12.0-16.0) g/dL Hct 33.3 L (36.0-46.0) % Plt Count 244 (140-440) Thou/mm3 BMP 11/19/24 23:26 Sodium 128 L Potassium 4.0 Chloride 98 Carbon Dioxide 20.1 BUN 17 Creatinine 1.0 Glucose 253 H D Calcium 8.4 Cardiac Enzymes 11/19/24 Range/Units 23:26 Troponin I < 0.020 (0.0-0.045) ng/mL Liver Function 11/19/24 Range/Units 23:26 Total Bilirubin 0.8 (0.3-1.2) mg/dL AST 51 H (0-34) U/L ALT 36 (10-49) U/L Alkaline Phosphatase 287 H D (46-116) U/L Albumin 3.4 (3.4-4.8) gm/dL Urine 11/19/24 Range/Units 23:41 Urine Color Lt-Yellow (Lt Yel-Yel) Urine Clarity Clear (Clear/Hazy) Urine pH 6.0 (5.0-7.0) Ur Specific [place] 1.020 (1.001-1.035) Urine Protein Negative (Neg - Trace) Urine Glucose (UA) 4+ A (Negative) ABG Interpretation ABG results: 11/20/24 01:13 ABG pH 7.44 ABG pCO2 31 L ABG pO2 90 ABG HCO3 21 ABG O2 Saturation 98 ABG Base Excess -2 Quality Measures Quality Measures sepsis Current suspected stage: sepsis Possible source: pulmonary Blood cultures ordered: yes Antibiotic ordered: Yes Advance care planning discussed with:: patient Medications Home Medications and Allergies Allergies Allergy/AdvReac Type Severity Reaction Status Date / Time No Known Allergies Allergy Verified 11/18/24 16:13 Visit Medications Acetaminophen (Acetaminophen 325 Mg Tablet) 650 mg PO Q6H PRN PRN Reason: Fever >100 or pain 1-3 Stop: 12/20/24 01:32 Albuterol/Ipratropium (Albuterol/Ipratropium (Duoneb) Rt Jillian 3 Ml Nebu) 3 ml INH Q8H JERARDO Stop: 12/20/24 06:59 Benzonatate (Benzonatate 100 Mg Capsule) 100 mg PO BID PRN; Protocol PRN Reason: cough Stop: 12/20/24 08:59 Dapagliflozin (Dapagliflozin Propanediol 5 Mg Tablet) 5 mg PO QAM JERARDO Stop: 12/20/24 08:59 Dextrose (Dextrose 50%-Water Inj 50 Ml Syringe) 50 ml IV Q15MIN PRN PRN Reason: BG <50 OR BG <70 & pt unresponsive Stop: 12/20/24 01:43 Dextrose (Dextrose 50%-Water Inj 50 Ml Syringe) 25 ml IV Q15MIN PRN PRN Reason: BG 50-70 responsive npo pt Stop: 12/20/24 01:43 Furosemide (Furosemide Inj 10 Mg/Ml 4ml Vial) 40 mg IVP QDAY [facility] Stop: 12/20/24 08:59 Glucagon (Glucagon Inj 1 Mg Vial) 1 mg IM Q15MIN PRN PRN Reason: BG <70, and no IV access Heparin Sodium (Porcine) (Heparin Sod Inj 5000 Unit/Ml Vial) 5,000 unit SC Q12H [facility] Stop: 12/04/24 08:59 Ceftriaxone Sodium/Dextrose (Rocephin/D5w 1gm Iv Premix) 50 mls @ 100 mls/hr IV QDAY [facility] Stop: 11/27/24 08:59 Azithromycin 500 mg/ Sodium (Chloride) 250 mls @ 250 mls/hr IV QDAY [facility] Stop: 11/27/24 08:59 Insulin Human Lispro (Insulin Lispro (Admelog) 1 Unit/0.01 Ml Unit) 0 unit SC [facility]; Protocol Stop: 12/20/24 07:29 Ondansetron HCl (Ondansetron Inj 2 Mg/Ml Inj 2 Ml) 4 mg IV Q6H PRN; Protocol PRN Reason: NAUSEA OR VOMITING Stop: 12/20/24 01:32 Pantoprazole Sodium (Pantoprazole Inj 40 Mg Vial) 40 mg IVP QDAY [facility] Stop: 12/20/24 08:59 Discontinued Medications Albuterol/Ipratropium (Albuterol/Ipratropium (Duoneb) Rt Jillian 3 Ml Nebu) 3 ml INH X1 ONE Stop: 11/19/24 22:39 Last Admin: 11/19/24 22:49 Dose: 3 ml Dapagliflozin (Dapagliflozin Propanediol 5 Mg Tablet) 5 mg PO X1 ONE Stop: 11/20/24 01:39 Furosemide (Furosemide Inj 10 Mg/Ml Vial 2 Ml) 20 mg IVP X1 ONE Stop: 11/19/24 23:12 Last Admin: 11/19/24 23:49 Dose: 20 mg Furosemide (Furosemide Inj 10 Mg/Ml Vial 2 Ml) 20 mg IVP X1 ONE Stop: 11/20/24 01:34 Ceftriaxone Sodium/Dextrose (Rocephin/D5w 1gm Iv Premix) 1 gm in 50 mls @ 100 mls/hr IV X1 ONE Stop: 11/20/24 01:16 Azithromycin 500 mg/ Sodium (Chloride) 250 mls @ 250 mls/hr IV X1 ONE Stop: 11/20/24 01:46 Last Admin: 11/20/24 01:22 Dose: 250 mls/hr Methylprednisolone Sodium Succinate (Methylprednisolone Sod Succ 62.5 Mg/Ml 2ml Vial) 125 mg IVP X1 ONE Stop: 11/19/24 23:10 Last Admin: 11/19/24 23:49 Dose: 125 mg Sodium Chloride (Sodium Chloride Rt 10% 15 Ml Nebu) 5 ml INH X1 ONE Stop: 11/20/24 01:34 Assessment & Plan Plan Assessment Esther is a 74 y/o female with PMHx hypertension, hyperlipidemia, yrz-drcysnd-hvlqwmjap type 2 diabetes who is admitted for AHRF 2/2 to CHF exacerbation and PNA. #Acute hypoxic respiratory failure secondary to #Sepsis #Community Acquired PNA #Acute CHF exacerbation Multifactorial for respiratory failure ABG shows pH of 7.44, pCO2 of 41, pO2 of 98, bicarb 21 Currently on BiPAP Patient does have diffuse crackles heard on physical exam Patient does not use oxygen at home Patient likely has multifactorial acute respiratory failure likely related to CHF exacerbation acquired pneumonia Patient likely to improve with diuresis and IV antibiotics Pt does not have bean dumper BNP ~1000 Pt may have component of HFpEF Pt met 3/4 Sepsis criteria including Tachycardia, tachypnea and fever Lactate 3.4, Procalc 3.3 qSOFA: 1 point Sepsis bolus held in setting of CHF Exacerbation Plan: ? Lasix 40 mg IV daily ? Resumed Farxiga 5 mg ? Strict LYNETTE's ? Daily weights ? Fluid restriction of 1500 mL ? Keep magnesium and potassium above 2 and 4 respectively to avoid any cardiac arrhythmias ? Rocephin and azithromycin for pneumonia coverage ? Follow-up MRSA nares ? Sputum culture ? Cocci ? Follow-up COVID, influenza and RSV ? Echo ? Consider cardiology consult ? Follow-up TSH, A1c and lipid panel for further cardiac stratification ? BiPAP as needed ? Pulmonary hygiene including antitussives, chest physio ? Follow-up sputum ? Follow up chest CT w/o contrast #Lactic Acidosis, Type B In setting of infection Plan: ? Trend lactate ? Treat underlying infection #Hypertension #Hyperlipidemia Chronic Plan: ? Holding blood pressure medicines as blood pressures soft at this point ? Follow-up lipid panel ? Pending med rec #Non-insulin dependent type II Diabetes mellitus No A1c on file Plan: ? Sliding scale insulin ? Hypoglycemic protocol in place ? Blood sugar checks with meals ? Follow-up A1c #Normocytic anemia MCV 81, could be chronic, Hgb 11.4 Plan: ? Trend CBC ? Iron studies panel ? Peripheral blood smear ? Reticulocyte count #Gastritis Chronic Plan: ? Protonix 40 mg daily #Health Maintenance Disposition: Telemetry DVT prophylaxis: Heparin GI prophylaxis: Voquenza (home medicine) Diet: Carb low CODE STATUS: Full Patient seen and care discussed with my attending physician, Dr. Audie Steinberg, PGY-1 Attending Provider Attestation/Addendum Pt was evaluated and plan formulated together with the housestaff team. I have reviewed the residents note above and agree with most of its content. Please refer to the residents note for additional details.
[2024-11-20 02:36] LABS: Reflex Lactate? Y
[2024-11-20 03:00] LABS: Lactic Acid, 3 HR 2.8 mMol/L (0.4-2.0)
[2024-11-20 03:03] LABS: Basophils # (Auto) 0.1 Thou/mm3 (0.0-0.2); Basophils % (Auto) 1 % (0-2.5); Eosinophils % (Auto) 0 % (0-10); Hematocrit 29.7 % (36.0-46.0); Hemoglobin 10.2 g/dL (12.0-16.0); Immature Granulocytes % (Auto) 1 % (0-0); Immature Granulocytes Auto 0.07 Thou/mm3 (0.00-0.00); Immature Reticulocyte Fraction 16.9 % (3.0-15.9); Lymphocytes # (Auto) 0.2 Thou/mm3 (1.0-4.8); Lymphocytes % (Auto) 2 % (10-50); Mean Corpuscular HGB Conc 34.3 g/dl (31.0-37.0); Mean Corpuscular Hemoglobin 28.1 pg (25.0-35.0); Mean Corpuscular Volume 82 fL (80-100); Monocytes # (Auto) 0.1 Thou/mm3 (0.0-0.8); Monocytes % (Auto) 1 % (0-12); Neutrophils # (Auto) 7.8 Thou/mm3 (1.8-7.7); Neutrophils % (Auto) 95 % (37-80); Nucleated Red Blood Cell % 0 /100 WBC (0); Platelet Count 209 Thou/mm3 (140-440); RDW Standard Deviation 41.8 fL (36.4-46.3); Red Blood Count 3.63 Miln/mm3 (4.00-5.20); Reticulocyte Hgb Content 23.6 pg (28.0-35.0); White Blood Count 8.2 Thou/mm3 (3.6-11.0)
[2024-11-20] MEDS: cefTRIAXone 1,000 MG in SODIUM CHLORIDE 0.9% (Popper) 50 ML 100 MG IV (03:03)
[2024-11-20 03:09] LABS: Path Review Blood Smear Sent to Pathologist
[2024-11-20 03:13] LABS: Glucose Estimated Average 318 mg/dL (80-131); Hemoglobin A1C 12.7 % Hgb (4.8-6.0)
[2024-11-20] MEDS: SODIUM CHLORIDE RT 10% 15 ML NEBU 5 ML INH (03:15)
[2024-11-20 03:26] LABS: Iron 6 mcg/dL (50-170); Percent Iron Saturation 3 % (20-55); Total Iron Binding Capacity 187 mcg/dL (250-425); Unsaturated Iron Binding 181 (225-295)
[2024-11-20 03:44] LABS: Alanine Aminotransferase 33 U/L (10-49); Albumin, Serum 3.2 gm/dL (3.4-4.8); Albumin/Globulin Ratio 1.1 (1.2-2.2); Alkaline Phosphatase 257 U/L (46-116); Anion Gap 7 (7-16); Aspartate Amino Transferase 43 U/L (0-34); BUN/Creatinine Ratio 15 Ratio (12-20); Bilirubin,Total 0.8 mg/dL (0.3-1.2); Blood Urea Nitrogen 17 mg/dL (9-23); Calcium 8.1 mg/dL (8.3-10.6); Calcium (Corrected) 8.7 mg/dL (8.5-10.1); Carbon Dioxide 22.6 mMol/L (20.0-31.0); Chloride 100 mMol/L (98-107); Cholesterol 135 mg/dL (132-200); Creatinine (Component) 1.1 mg/dL (0.6-1.3); Estimated Creatinine Clearance 34.4 mL/min (>60); Globulin 2.9 gm/dL (2.3-3.5); Glucose 247 mg/dL (74-106); HDL Cholesterol < 5 mg/dL (40-60); Magnesium 1.6 mg/dL (1.6-2.6); Osmolality,Calculated 270 (275-295); Potassium 4.4 mMol/L (3.4-5.1); Sodium 130 mMol/L (136-145); Thyroid Stimulating Hormone 3.08 uIU/mL (0.55-4.78); Total Protein 6.1 gm/dL (5.7-8.2); Triglycerides 520 mg/dL (30-150); eGFR 52 See Note
--- NOTE | 2024-11-20 04:13 | PC.RT ---
PT unable to produce sputum despite induction, MD Casey would like for Induction to be attempted again during dayshift.
[2024-11-20 04:43] LABS: Respiratory Syncytial Virus Ag Negative (Negative)
[2024-11-20] MEDS: Magnesium Sulfate 2 GM Ivpb 2 GM/50 ML BAG IV (05:49)
[2024-11-20] MEDS: ALBUTEROL/IPRATROPIUM (Duoneb) RT SOL 3 ML NEBU INH ×3 (07:32→22:03)
[2024-11-20] MEDS: INSULIN LISPRO (AdmeLOG) 1 UNIT/0.01 ML UNIT SC ×3 (07:43→17:07)
[2024-11-20] MEDS: INSULIN GLARGINE (Lantus) 5 UNIT/0.05 ML (PER 5 UNITS) 10 UNIT SC (08:34)
[2024-11-20] MEDS: HEPARIN SOD INJ 5000 UNIT/ML VIAL SC ×2 (08:34→20:32)
[2024-11-20] MEDS: ESCITALOPRAM OXALATE 10 MG TABLET PO (08:34)
[2024-11-20] MEDS: [UNRECOGNIZED DRUG - OTHER] 10 EA PO (08:39)
--- NOTE | 2024-11-20 12:33 | ESPR_ITS ---
Documentation for date of: 11/20/24 Subjective Subjective Interval history: Patient was seen and examined by the bedside. Saturates in 97-98% on 3L NC, conversational, reports her breathing has improved. Patient reports pain in the right lower extremity, reports it started after a trauma when she was being [address] scan showed bilateral pneumonia. Will continue with antibiotics, consulted cardiology, echo is ordered. Exam Vital Signs Temp Pulse Resp BP Pulse Ox O2 Del Method O2 Flow Rate 97.5 F 96 23 H 105/65 97 Nasal Cannula 3 11/20/24 12:00 11/20/24 12:00 11/20/24 12:00 11/20/24 12:00 11/20/24 12:00 11/20/24 12:00 11/20/24 12:00 FiO2 35 11/20/24 08:00 Narrative Exam Physical Exam General: Awake and in no acute distress. Conversational and non-toxic appearing. HEENT: Normocephalic, atraumatic, mucous membranes moist. Heart: Regular rate and rhythm, systolic murmur at the left sternal border. Lungs: Bilateral rhonchi and crackles. Abdomen: Soft, nondistended, nontender, positive bowel sounds. ?No guarding or rebound tenderness. Neurologic: Alert and oriented x3, no gross neurological deficit, and patient able to move all 4 extremities. Extremities: Mild pedal 1+ edema. Skin: No rash or ecchymoses. Objective Labs 11/20/24 02:55 11/20/24 02:55 Labs: Laboratory Results - last 24 hr 11/19/24 11/19/24 11/20/24 23:26 23:41 01:13 WBC 9.4 RBC 4.09 Hgb 11.4 L Hct 33.3 L MCV 81 MCH 27.9 MCHC 34.2 RDW Std Deviation 41.1 Plt Count 244 Neut % (Auto) 94 H Lymph % (Auto) 4 L Frontier % (Auto) 1 Eos % (Auto) 0 Baso % (Auto) 0 Neut # (Auto) 8.9 H Lymph # (Auto) 0.4 L Frontier # (Auto) 0.1 Eos # (Auto) 0.0 Baso # (Auto) 0.0 Immature Gran # (Auto) 0.05 H Absolute Nucleated RBC 0.00 Immature Gran % 1 H Nucleated RBC % 0 Smear Path Review Retic Count (auto) Absolute Retic Immature Retic Fraction Retic Hgb Content CHr PT 15.2 H INR 1.4 H APTT 36.5 H Puncture Site Right Radial ABG pH 7.44 ABG pCO2 31 L ABG pO2 90 ABG HCO3 21 ABG O2 Saturation 98 ABG Base Excess -2 FiO2 35 Sodium 128 L Potassium 4.0 Chloride 98 Carbon Dioxide 20.1 Anion Gap 10 BUN 17 Creatinine 1.0 Estim Creat Clear Calc 37.9 L eGFR 58 L BUN/Creatinine Ratio 17 Glucose [address] Glu mg/dL Hemoglobin A1c Calculated Osmolality 267 L Lactic Acid 3.4 H Calcium 8.4 Corrected Calcium 8.9 Phosphorus 2.5 Magnesium 1.6 Iron TIBC Iron Saturation Unsat Iron Binding Total Bilirubin 0.8 AST 51 H ALT 36 Alkaline Phosphatase 287 H D Lactate Dehydrogenase 224 Troponin I < 0.020 B-Natriuretic Peptide 1031 H* Total Protein 6.6 Albumin 3.4 Globulin 3.2 Albumin/Globulin Ratio 1.1 L Triglycerides Cholesterol LDL Cholesterol, Calc HDL Cholesterol Cholesterol/HDL Ratio Lipase 24 Procalcitonin 3.30 H TSH Ur Collection Type Catheter Urine Color Lt-Yellow Urine Clarity Clear Urine pH 6.0 Ur Specific [place] 1.020 Urine Protein Negative Urine Glucose (UA) 4+ A Urine Ketones Negative Urine Blood Negative Urine Nitrite Negative Urine Bilirubin Negative Urine Urobilinogen (Auto) Negative Ur Leukocyte Esterase Negative Urine RBC 2 Urine WBC 7 H Ur Squamous Epith Cells 1 Urine Bacteria None RSV Rapid 11/20/24 11/20/24 02:55 04:02 WBC 8.2 RBC 3.63 L Hgb 10.2 L Hct 29.7 L MCV 82 MCH 28.1 MCHC 34.3 RDW Std Deviation 41.8 Plt Count 209 D Neut % (Auto) 95 H Lymph % (Auto) 2 L Frontier % (Auto) 1 Eos % (Auto) 0 Baso % (Auto) 1 Neut # (Auto) 7.8 H Lymph # (Auto) 0.2 L Frontier # (Auto) 0.1 Eos # (Auto) 0.0 Baso # (Auto) 0.1 Immature Gran # (Auto) 0.07 H Absolute Nucleated RBC 0.00 Immature Gran % 1 H Nucleated RBC % 0 Smear Path Review Sent to Pathologist Retic Count (auto) 1.0 Absolute Retic 37.0 Immature Retic Fraction 16.9 H Retic Hgb Content CHr 23.6 L PT INR APTT Puncture Site ABG pH ABG pCO2 ABG pO2 ABG HCO3 ABG O2 Saturation ABG Base Excess FiO2 Sodium 130 L Potassium 4.4 Chloride 100 Carbon Dioxide 22.6 Anion Gap 7 BUN 17 Creatinine 1.1 Estim Creat Clear Calc 34.4 L eGFR 52 L BUN/Creatinine Ratio 15 [address]ucose [address] Glu mg/dL 318 H Hemoglobin A1c 12.7 H Calculated Osmolality 270 L Lactic Acid 2.8 H Calcium 8.1 L Corrected Calcium 8.7 Phosphorus Magnesium 1.6 Iron 6 L TIBC 187 L Iron Saturation 3 L Unsat Iron Binding 181 L Total Bilirubin 0.8 AST 43 H ALT 33 Alkaline Phosphatase 257 H D Lactate Dehydrogenase Troponin I B-Natriuretic Peptide Total Protein 6.1 Albumin 3.2 L Globulin 2.9 Albumin/Globulin Ratio 1.1 L Triglycerides 520 H Cholesterol 135 LDL Cholesterol, Calc TNP HDL Cholesterol < 5 L Cholesterol/HDL Ratio 27.0 H Lipase Procalcitonin TSH 3.08 Ur Collection Type Urine Color Urine Clarity Urine pH Ur Specific [place] Urine Protein Urine Glucose (UA) Urine Ketones Urine Blood Urine Nitrite Urine Bilirubin Urine Urobilinogen (Auto) Ur Leukocyte Esterase Urine RBC Urine WBC Ur Squamous Epith Cells Urine Bacteria RSV Rapid Negative ABG Interpretation ABG results: 11/20/24 01:13 ABG pH 7.44 ABG pCO2 31 L ABG pO2 90 ABG HCO3 21 ABG O2 Saturation 98 ABG Base Excess -2 Quality Measures Quality Measures sepsis Current suspected stage: sepsis Possible source: pulmonary Blood cultures ordered: yes Antibiotic ordered: Yes Advance care planning discussed with:: other Assessment & Plan Assessment Current Active Medications: Generic Name Dose Route Start Last Admin Trade Name [place] PRN Reason Stop Dose Admin Acetaminophen 650 mg 11/20/24 01:33 Acetaminophen 325 Mg Tablet PO 12/20/24 01:32 Q6H PRN Fever >100 or pain 1-3 Albuterol/Ipratropium 3 ml 11/20/24 07:00 11/20/24 07:32 Albuterol/Ipratropium (Duoneb) Rt Jillian 3 Ml Nebu INH 12/20/24 06:59 3 ml Q8H JERARDO Administration Atorvastatin Calcium 40 mg 11/20/24 21:00 Atorvastatin Calcium 20 Mg Tablet PO 12/20/24 20:59 HS JERARDO Benzonatate 100 mg 11/20/24 01:39 Benzonatate 100 Mg Capsule PO 12/20/24 08:59 BID PRN cough Protocol Tejal (Vonoprazan 0 ea 11/20/24 11:00 11/20/24 11:05 ) 10 Mg Tablet PO 12/20/24 10:59 Not Given DAILY JERARDO Dextrose 50 ml 11/20/24 01:44 Dextrose 50%-Water Inj 50 Ml Syringe IV 12/20/24 01:43 Q15MIN PRN BG <50 OR BG <70 & pt unresponsive Dextrose 25 ml 11/20/24 01:44 Dextrose 50%-Water Inj 50 Ml Syringe IV 12/20/24 01:43 Q15MIN PRN BG 50-70 responsive npo pt Escitalopram Oxalate 10 mg 11/20/24 09:00 11/20/24 08:34 Escitalopram Oxalate 10 Mg Tablet PO 12/20/24 08:59 10 mg QDAY JERARDO Administration Fenofibrate 145 mg 11/21/24 09:00 Fenofibrate 145 Mg Tablet (Non-Formulary) PO 12/21/24 08:59 QDAY JERARDO Furosemide 40 mg 11/20/24 09:00 11/20/24 08:59 Furosemide Inj 10 Mg/Ml 4ml Vial IVP 12/20/24 08:59 Not Given QDAY JERARDO Glucagon 1 mg 11/20/24 01:44 Glucagon Inj 1 Mg Vial IM Q15MIN PRN BG <70, and no IV access Heparin Sodium (Porcine) 5,000 unit 11/20/24 09:00 11/20/24 08:34 Heparin Sod Inj 5000 Unit/Ml Vial SC 12/04/24 08:59 5,000 unit Q12H JERARDO Administration Ceftriaxone Sodium/Dextrose 1 gm in 50 mls @ 100 mls/hr 11/20/24 21:00 Rocephin/D5w 1gm Iv Premix IV 11/27/24 08:59 QDAY@2100 JERARDO Azithromycin 500 mg/ Sodium 250 mls @ 250 mls/hr 11/20/24 21:00 Chloride IV 11/27/24 08:59 QDAY@2100 JERARDO Insulin Glargine 10 unit 11/20/24 09:00 11/20/24 08:34 Insulin Glargine (Lantus) 5 Unit/0.05 Ml (Per 5 Units) SC 12/20/24 08:59 10 unit QDAY JERARDO Administration Insulin Human Lispro 0 unit 11/20/24 07:30 11/20/24 11:29 Insulin Lispro (Admelog) 1 Unit/0.01 Ml Unit SC 12/20/24 07:29 1 unit AC JERARDO Administration Protocol Ondansetron HCl 4 mg 11/20/24 01:33 Ondansetron Inj 2 Mg/Ml Inj 2 Ml IV 12/20/24 01:32 Q6H PRN NAUSEA OR VOMITING Protocol Plan The patient is a 74 y/o female with PMHx hypertension, hyperlipidemia, [id number] type 2 diabetes, breast cancer (s/p mastectomy) who comes in for an evaluation of shortness of breath, onset yesterday, and worsening with associated cough that was admitted due to acute hypoxic respiratory failure secondary to CAP and possible CHF for treatment and management. #Acute hypoxic respiratory failure, improving #Sepsis, resolved #Community acquired pneumonia #New onset HF exacerbation Most likely due to bilateral community-acquired pneumonia with CHF contributing. Patient denies following up with home demonstration agent. Will continue with antibiotics and diuresis. On admission, 11/20/24: Initial ABG shows pH of 7.44, pCO2 of 41, pO2 of 98, bicarb 21, Lactate 3.4, Procalc 3.3, BNP ~1000 Pt met 3/4 Sepsis criteria including Tachycardia, tachypnea and fever, qSOFA: 1 point 11/20/24: In the AM patient was transitioned from BiPAP to NC, breathing has improved. Holding Farxiga due to soft blood pressure. Plan: ? Lasix 40 mg IV daily ? Strict LYNETTE's ? Daily weights ? Fluid restriction of 1500 mL ? Keep magnesium and potassium above 2 and 4 respectively to avoid any cardiac arrhythmias ? Rocephin and azithromycin 11/20/24 ? Follow-up MRSA nares ? Sputum culture ? ?Cocci IgM negative, IgG pending, RSV negative. ? Follow-up COVID, influenza and RSV ? Echo ? Consider cardiology consult ? Follow-up TSH, A1c and lipid panel for further cardiac stratification ? BiPAP as needed ? Chest physiotherapy - vibration ? Follow-up sputum #Hypertriglyceridemia #Hyperlipidemia Lipid panel positive for triglycerides>500 Plan: - started atorvastatin - started fenofibrate - low fat diet #Lactic Acidosis, Type B, resolved In setting of infection Plan: ? Monitor CMP #Hypertension Chronic Plan: ? Holding blood pressure medicines as blood pressures soft at this point ? Pending med rec #Non-insulin dependent type II Diabetes mellitus A1c 12.7% Plan: ? Sliding scale insulin ? Hypoglycemic protocol in place ? Blood sugar checks with meals #Normocytic anemia MCV 81, could be chronic, Hgb 11.4 Iron panel suggestive of iron deficiency. Plan: ? Trend CBC ? Peripheral blood smear ? Reticulocyte count - start iron supplements on discharge #Gastritis Chronic Plan: ? Protonix 40 mg daily Health maintenance: FEN: consistent carbohydrate low, low fat DVT prophylaxis: heparin sc GI prophylaxis: none Dispo: telemetry CODE STATUS: Full code Plan of care discussed with attending Dr. Parry and PGY-[address] Post. Aundrea Chavez MD, PGY 1. -- ATTESTATION: I saw and examined the patient this morning, and I agree with current management stated by the resident. Will continue to monitor patient during their stay. Disclaimer: Despite multiple revisions, due to the dictation software being used, the document bellow may not be free of grammatical errors including phonetic/typographic errors. However, this does not deter from our commitment to providing health care in the patient's best interest in mind. Dr. Imtiaz Post, PGY-3 Attending Provider Attestation/Addendum I attest that I was physically present for the evaluation, physical examination, lab and imaging review of the patient with the residents. I discussed the case with the residents and agree with the findings and plans of care as documented above. Patient is a 74 years old female with past medical history of hypertension, hyperlipidemia, diabetes, breast cancer s/p mastectomy who presented to the ED with complaint of shortness of breath with cough. Patient was admitted overnight for management of acute hypoxic respiratory failure secondary to community-acquired pneumonia versus acute CHF exacerbation. Patient also had sepsis on presentation. This morning at bedside, patient states she is feeling much better, saturating well on 3 to 4 L nasal cannula. We will continue with IV antibiotics, Rocephin and azithromycin, IV Lasix. Awaiting culture results, echocardiography. Continues to be on insulin regimen for diabetes. Also noted to have triglyceride level of 520, we will start her on low-fat diet and statin plus fibrate. Becki Parry MD
--- NOTE | 2024-11-20 13:04 | PC.SS ---
This is 74-year-old, female who presented to the ED due to suffering from chest pain. Patient appeared alert and oriented to self, place and situation. Patient was pleasant, her mood and behavior were ordinary. Patient's thought process was logical. Patient verified her address and phone number. Patient reported that she is independent at home, no DME use. Patient assigned her daughter, Monica as her emergency contact. Patient's PCP is Imtiaz Power. When medically clear, patient will return home, no transportation is needed.
[2024-11-20 13:16] LABS: Cocci Serology, IgM Negative (Negative)
[2024-11-20] MEDS: ATORVASTATIN CALCIUM 20 MG TABLET 40 MG PO (20:32)
[2024-11-20] MEDS: cefTRIAXone/D5w 1gm IV premix 1 GM/50 ML BAG IV (20:33)
[2024-11-21] VITALS (12 sets, daily range): BP systolic 96–135; BP diastolic 60–72; PULSE 81–96; RESP 14–99; TEMP 36.1–36.8; O2SAT 93–100; BMI 23.6
--- NOTE | 2024-11-21 01:03 | ECHO_ITS ---
Transthoracic Echo Report Ht (in): 62 Wt (lb): 128 Exam Location: Echo Lab Status: Inpatient Rubber Trimmer: APRIL Blas^^^^ Indications: Procedure Performed: BP: 118 / 78 HR: 91 Technical Quality: Fair MEASUREMENTS (Male / Female) Normal Values 2D ECHO LV Diastolic Diameter PLAX 2.7 cm 4.2 - 5.9 / 3.9 - 5.3 cm LV Systolic Diameter PLAX 2.3 cm IVS Diastolic Thickness 0.8 cm 0.6 - 1.0 / 0.6 - 0.9 cm LVPW Diastolic Thickness 0.8 cm 0.6 - 1.0 / 0.6 - 0.9 cm LV Relative Wall Thickness 0.6 LVOT Diameter 1.5 cm Aortic Root Diameter 2.9 cm LA Systolic Diameter LX 3.1 cm 3.0 - 4.0 / 2.7 - 3.8 cm LV Ejection Fraction MOD BP 56.2 % >= 55 % LV Cardiac Index MOD BP 2102.2 cm?/min?m? LV Ejection Fraction MOD 4C 61.3 % LV Cardiac Index MOD 4C 2153.4 cm?/min?m? LV Ejection Fraction 4C AL 63.1 % LV Cardiac Index 4C AL 2329.3 cm?/min?m? LV Ejection Fraction MOD 2C 49.8 % LV Cardiac Index MOD 2C 1778.4 cm?/min?m? LV Ejection Fraction 2C AL 49.2 % LV Cardiac Index 2C AL 1896.2 cm?/min?m? LA Volume Index 37.4 cm?/m? 16 - 28 cm?/m? Ascending Aorta Diameter 2.5 cm DOPPLER AV Peak Velocity 308.7 cm/s AV Peak Gradient 38.1 mmHg AV Mean Gradient 28.5 mmHg AV Velocity Time Integral 75.0 cm AI Peak Velocity 323.5 cm/s AI Peak Gradient 41.9 mmHg AI Pressure Half Time 298.0 ms LVOT Peak Velocity 72.5 cm/s LVOT Peak Gradient 2.1 mmHg LVOT Velocity Time Integral 18.3 cm LVOT Cardiac Index 1837.4 cm?/min?m? AV Area Cont Eq vti 0.4 cm? AV Area Cont Eq pk 0.4 cm? MV Peak Velocity 239.0 cm/s MV Peak Gradient 22.8 mmHg MV Mean Velocity 156.0 cm/s MV Mean Gradient 12.0 mmHg MV Area PHT 5.8 cm? MR Peak Velocity 472.0 cm/s MR Peak Gradient 89.1 mmHg Mitral E Point Velocity 181.0 cm/s Mitral A Point Velocity 163.0 cm/s Mitral E to A Ratio 1.1 LV E' Lateral Velocity 4.7 cm/s Mitral E to LV E' Lateral Ratio 38.3 LV E' Septal Velocity 4.5 cm/s Mitral E to LV E' Septal Ratio 40.3 TR Peak Velocity 353.5 cm/s TR Peak Gradient 50.0 mmHg PV Peak Velocity 224.0 cm/s PV Peak Gradient 20.1 mmHg RVOT Peak Velocity 51.7 cm/s FINDINGS Left Ventricle Normal left ventricular size, wall thickness, systolic function. There is abnormal septal motion. There is grade II diastolic dysfunction of the left ventricle (pseudonormal filling pattern). The left ventricular ejection fraction is normal, estimated at 55-60%. Right Ventricle The right ventricle is normal in size and systolic function. Estimated right ventricular systolic pressure is moderately elevated, 65 mmHg. Left Atrium The left atrium is normal by two-dimensional, color flow and Doppler imaging with no structural abnormalities, no thrombus formation present. Right Atrium The right atrium is normal by two-dimensional imaging, color flow and Doppler imaging with no structural abnormalities, no thrombus formation present. Atrial Septum The interatrial septum appears normal with no evidence of a shunt. Aorta The aorta is normal by two-dimensional, color flow and Doppler interrogation. Mitral Valve Moderate thickening of the mitral valve leaflets. Zzuwodbm-ku-[id number] mitral regurgitation. Moderate mitral annular calcification. Aortic Valve Mild aortic valve regurgitation. Moderate aortic valve stenosis, mean gradient 28.5 mmHg, MESFIN 0.43 cm?. Tricuspid Valve There is moderate to severe tricuspid valve regurgitation. Pulmonic Valve Mild pulmonic valve regurgitation. Vessels The pulmonary artery appears normal. The inferior vena cava pulmonary and hepatic veins appear normal. Pericardium The pericardium is normal by two-dimensional imaging. There is no significant pericardial effusion. CONCLUSIONS indication: CHF LV appears normal with EF 55-60%. Diastolic Dysfunction II. RV appears normal with RVSP elevated 65 mmHg. Mod-Severe MR & MAC Moderate mild AI Mod-Severe TR Neto Taylor (Electronically Signed) Final Date: 21 November 2024 15:31
[2024-11-21 06:21] LABS: Basophils # (Auto) 0.1 Thou/mm3 (0.0-0.2); Basophils % (Auto) 0 % (0-2.5); Eosinophils % (Auto) 0 % (0-10); Hematocrit 26.8 % (36.0-46.0); Immature Granulocytes % (Auto) 1 % (0-0); Immature Granulocytes Auto 0.14 Thou/mm3 (0.00-0.00); Lymphocytes # (Auto) 0.6 Thou/mm3 (1.0-4.8); Lymphocytes % (Auto) 6 % (10-50); Mean Corpuscular HGB Conc 33.6 g/dl (31.0-37.0); Mean Corpuscular Volume 83 fL (80-100); Monocytes # (Auto) 0.4 Thou/mm3 (0.0-0.8); Monocytes % (Auto) 4 % (0-12); Neutrophils # (Auto) 10.3 Thou/mm3 (1.8-7.7); Neutrophils % (Auto) 89 % (37-80); Nucleated Red Blood Cell % 0 /100 WBC (0); Platelet Count 236 Thou/mm3 (140-440); Red Blood Count 3.22 Miln/mm3 (4.00-5.20); White Blood Count 11.5 Thou/mm3 (3.6-11.0)
[2024-11-21] MEDS: ALBUTEROL/IPRATROPIUM (Duoneb) RT SOL 3 ML NEBU INH ×3 (06:42→22:09)
[2024-11-21 06:47] LABS: Partial Thromboplastin Time 36.5 Seconds (22.0-36.0)
[2024-11-21 07:00] LABS: Alanine Aminotransferase 24 U/L (10-49); Albumin, Serum 2.8 gm/dL (3.4-4.8); Alkaline Phosphatase 189 U/L (46-116); Anion Gap 7 (7-16); Aspartate Amino Transferase 36 U/L (0-34); BUN/Creatinine Ratio 33 Ratio (12-20); Bilirubin,Total 0.4 mg/dL (0.3-1.2); Blood Urea Nitrogen 30 mg/dL (9-23); Calcium 8.2 mg/dL (8.3-10.6); Calcium (Corrected) 9.2 mg/dL (8.5-10.1); Carbon Dioxide 23.6 mMol/L (20.0-31.0); Chloride 105 mMol/L (98-107); Creatinine (Component) 0.9 mg/dL (0.6-1.3); Estimated Creatinine Clearance 42.1 mL/min (>60); Globulin 2.9 gm/dL (2.3-3.5); Glucose 166 mg/dL (74-106); Magnesium 2.5 mg/dL (1.6-2.6); Osmolality,Calculated 282 (275-295); Phosphorous 3.7 mg/dL (2.4-5.1); Potassium 4.3 mMol/L (3.4-5.1); Sodium 136 mMol/L (136-145); Total Protein 5.7 gm/dL (5.7-8.2); eGFR > 60 See Note
--- NOTE | 2024-11-21 08:25 | PD.IMCONS ---
HPI Data of Consult Requesting Physician: Power Carlisle MD Primary Care Provider: Imtiaz Potter Consult Narrative History of present illness: This is a 74 y/o female with PMHx hypertension, hyperlipidemia, ggy-hluanmr-mquigiwjp type 2 diabetes, breast cancer (s/p mastectomy) pt seen in the ER with sob with cough and fever Chest CT shows b/l pneumonia initial EKG showed sius tachycardia improved currently cc:: cc: Power Carlisle MD Meds Home Medications and Allergies Allergies Allergy/AdvReac Type Severity Reaction Status Date / Time No Known Allergies Allergy Verified 11/18/24 16:13 Exam Vital Signs Temp Pulse Resp BP Pulse Ox O2 Del Method O2 Flow Rate 97.1 F 81 16 135/67 H 97 Nasal Cannula 2 11/21/24 08:00 11/21/24 08:00 11/21/24 08:00 11/21/24 08:00 11/21/24 08:00 11/21/24 08:00 11/21/24 08:00 FiO2 35 11/21/24 08:00 Routine HEENT Exam Head: Present normocephalic and atraumatic Eye: Present EOMI and PERRL ENT: Present mucous membranes moist Routine Neck Exam Neck: Present supple and trachea midline Routine Respiratory Exam Respiratory: Present chest non-tender, lungs clear, normal breath sounds and no resp distress Routine Cardiovascular Exam Cardiovascular: Present RRR Routine Abdominal Exam Abdominal: Present soft and normoactive bowel sounds Routine Extremities Exam Extremities: Present full ROM Routine Skin Exam Skin: Present intact, dry and warm Routine Neurological Exam Neurological: Present alert, oriented X3 and CN II-XII intact Routine Psychiatric Exam Psychiatric: Present normal affect and normal thought process Results Labs 11/21/24 05:10 11/21/24 05:10 Labs: Short CBC 11/21/24 Range/Units 05:10 WBC 11.5 H D (3.6-11.0) Thou/mm3 Hgb 9.0 L (12.0-16.0) g/dL Hct 26.8 L (36.0-46.0) % Plt Count 236 (140-440) Thou/mm3 BMP 11/21/24 05:10 Sodium 136 Potassium 4.3 Chloride 105 Carbon Dioxide 23.6 BUN 30 H Creatinine 0.9 Glucose 166 H D Calcium 8.2 L Liver Function 11/21/24 Range/Units 05:10 Total Bilirubin 0.4 (0.3-1.2) mg/dL AST 36 H (0-34) U/L ALT 24 (10-49) U/L Alkaline Phosphatase 189 H D (46-116) U/L Albumin 2.8 L (3.4-4.8) gm/dL ABG Interpretation ABG results: 11/20/24 01:13 ABG pH 7.44 ABG pCO2 31 L ABG pO2 90 ABG HCO3 21 ABG O2 Saturation 98 ABG Base Excess -2 Assessment and Plan Assessment and plan (1) Acute respiratory distress: Status: Acute (2) Pneumonia: Status: Acute (3) Sepsis: Status: Acute (4) Weakness generalized: Status: Acute Additional Assessment & Plan Additional Plan: continue treatment for pneumonia with antibiotics obtain Echo pt HR improved - In sinus
[2024-11-21] MEDS: BENZONATATE 100 MG CAPSULE PO (08:45)
[2024-11-21] MEDS: INSULIN LISPRO (AdmeLOG) 1 UNIT/0.01 ML UNIT SC ×4 (08:45→21:37)
[2024-11-21] MEDS: ESCITALOPRAM OXALATE 10 MG TABLET PO (08:45)
[2024-11-21] MEDS: INSULIN GLARGINE (Lantus) 5 UNIT/0.05 ML (PER 5 UNITS) 10 UNIT SC (08:46)
[2024-11-21] MEDS: HEPARIN SOD INJ 5000 UNIT/ML VIAL SC ×2 (08:46→21:18)
[2024-11-21] MEDS: FUROSEMIDE INJ 10 MG/ML 4ML VIAL 40 MG IVP (09:00)
[2024-11-21 12:48] LABS: Cocci Serology, IgG Negative (Negative)
[2024-11-21] MEDS: guaiFENesin ER 600 MG TABCR PO (13:26)
--- NOTE | 2024-11-21 14:27 | PD.RESPRO ---
Documentation for date of: 11/21/24 Subjective Subjective Interval history: No acute events overnight.?Patient seen and examined at bedside this AM.?Patient reports improvement in breathing. Labs and vitals were reviewed.?Patient had 1.6 L output in the last 24 hours. WBC had uptrended from 8.2 to 11.5. Hgb downtrended from 10.2 to 9.0. Will continue to trend. Patient was on BiPAP at night, was able to transition to room air today. Continuing Lasix 40 mg IV qday for diuresis and ceftriaxone/azithromycin for pneumonia. Awaiting final blood cultures and urine culture. Echo showed normal EF 55-60%. Diastolic Dysfunction II. No further complaints at this time. Review of systems otherwise negative except what is mentioned above. Exam Vital Signs Temp Pulse Resp BP Pulse Ox O2 Del Method O2 Flow Rate 97.2 F 87 18 96/60 94 L Room Air 2 11/21/24 12:00 11/21/24 12:00 11/21/24 12:00 11/21/24 12:00 11/21/24 12:00 11/21/24 12:00 11/21/24 08:00 FiO2 35 11/21/24 08:00 Narrative Exam Physical Exam General: Awake and in no acute distress. Conversational and non-toxic appearing. HEENT: Normocephalic, atraumatic, mucous membranes moist. Heart: Regular rate and rhythm, systolic murmur at the left sternal border. Lungs: Bilateral rhonchi and crackles. Abdomen: Soft, nondistended, nontender, positive bowel sounds. ?No guarding or rebound tenderness. Neurologic: Alert and oriented x3, no gross neurological deficit, and patient able to move all 4 extremities. Extremities: Mild pedal 1+ edema. Skin: No rash or ecchymoses. Objective Labs 11/22/24 05:27 11/22/24 05:27 Labs: Laboratory Results - last 24 hr 11/20/24 11/21/24 03:30 05:10 WBC 11.5 H D RBC 3.22 L Hgb 9.0 L Hct 26.8 L MCV 83 MCH 28.0 MCHC 33.6 RDW Std Deviation 43.0 Plt Count 236 Neut % (Auto) 89 H Lymph % (Auto) 6 L Warrick % (Auto) 4 Eos % (Auto) 0 Baso % (Auto) 0 Neut # (Auto) 10.3 H Lymph # (Auto) 0.6 L Warrick # (Auto) 0.4 Eos # (Auto) 0.0 Baso # (Auto) 0.1 Immature Gran # (Auto) 0.14 H Absolute Nucleated RBC 0.00 Immature Gran % 1 H Nucleated RBC % 0 APTT 36.5 H Sodium 136 Potassium 4.3 Chloride 105 Carbon Dioxide 23.6 Anion Gap 7 BUN 30 H Creatinine 0.9 Estim Creat Clear Calc 42.1 L eGFR > 60 BUN/Creatinine Ratio 33 H Glucose 166 H D Calculated Osmolality 282 Calcium 8.2 L Corrected Calcium 9.2 Phosphorus 3.7 Magnesium 2.5 Total Bilirubin 0.4 AST 36 H ALT 24 Alkaline Phosphatase 189 H D Total Protein 5.7 Albumin 2.8 L Globulin 2.9 Albumin/Globulin Ratio 1.0 L Coccidioides IgG Ab Negative ABG Interpretation ABG results: 11/20/24 01:13 ABG pH 7.44 ABG pCO2 31 L ABG pO2 90 ABG HCO3 21 ABG O2 Saturation 98 ABG Base Excess -2 Quality Measures Quality Measures sepsis Current suspected stage: ruled out Possible source: pulmonary Blood cultures ordered: yes Antibiotic ordered: Yes Advance care planning discussed with:: patient Assessment & Plan Assessment Current Active Medications: Generic Name Dose Route Start Last Admin Trade Name Freq PRN Reason Stop Dose Admin Acetaminophen 650 mg 11/20/24 01:33 Acetaminophen 325 Mg Tablet PO 12/20/24 01:32 Q6H PRN Fever >100 or pain 1-3 Albuterol/Ipratropium 3 ml 11/20/24 07:00 11/21/24 06:42 Albuterol/Ipratropium (Duoneb) Rt Jillian 3 Ml Nebu INH 12/20/24 06:59 3 ml Q8H JERARDO Administration Atorvastatin Calcium 40 mg 11/20/24 21:00 11/20/24 20:32 Atorvastatin Calcium 20 Mg Tablet PO 12/20/24 20:59 40 mg HS JERARDO Administration Benzonatate 100 mg 11/20/24 01:39 11/21/24 08:45 Benzonatate 100 Mg Capsule PO 12/20/24 08:59 100 mg BID PRN Administration cough Protocol Tejal (Vonoprazan 0 ea 11/20/24 11:00 11/21/24 08:47 ) 10 Mg Tablet PO 12/20/24 10:59 Not Given DAILY JERARDO Dextrose 50 ml 11/20/24 01:44 Dextrose 50%-Water Inj 50 Ml Syringe IV 12/20/24 01:43 Q15MIN PRN BG <50 OR BG <70 & pt unresponsive Dextrose 25 ml 11/20/24 01:44 Dextrose 50%-Water Inj 50 Ml Syringe IV 12/20/24 01:43 Q15MIN PRN BG 50-70 responsive npo pt Escitalopram Oxalate 10 mg 11/20/24 09:00 11/21/24 08:45 Escitalopram Oxalate 10 Mg Tablet PO 12/20/24 08:59 10 mg QDAY JERARDO Administration Fenofibrate 145 mg 11/21/24 09:00 11/21/24 09:11 Fenofibrate 145 Mg Tablet (Non-Formulary) PO 12/21/24 08:59 Not Given QDAY JERARDO Furosemide 40 mg 11/20/24 09:00 11/21/24 09:00 Furosemide Inj 10 Mg/Ml 4ml Vial IVP 12/20/24 08:59 40 mg QDAY JERARDO Administration Glucagon 1 mg 11/20/24 01:44 Glucagon Inj 1 Mg Vial IM Q15MIN PRN BG <70, and no IV access Heparin Sodium (Porcine) 5,000 unit 11/20/24 09:00 11/21/24 08:46 Heparin Sod Inj 5000 Unit/Ml Vial SC 12/04/24 08:59 5,000 unit Q12H JERARDO Administration Ceftriaxone Sodium/Dextrose 1 gm in 50 mls @ 100 mls/hr 11/20/24 21:00 11/20/24 20:33 Rocephin/D5w 1gm Iv Premix IV 11/27/24 08:59 100 mls/hr QDAY@2100 JERARDO Administration Azithromycin 500 mg/ Sodium 250 mls @ 250 mls/hr 11/20/24 21:00 11/20/24 20:33 Chloride IV 11/27/24 08:59 250 mls/hr QDAY@2100 JERARDO Administration Insulin Glargine 10 unit 11/20/24 09:00 11/21/24 08:46 Insulin Glargine (Lantus) 5 Unit/0.05 Ml (Per 5 Units) SC 12/20/24 08:59 10 unit QDAY JERARDO Administration Insulin Human Lispro 0 unit 11/20/24 07:30 11/21/24 12:24 Insulin Lispro (Admelog) 1 Unit/0.01 Ml Unit SC 12/20/24 07:29 4 unit AC JERARDO Administration Protocol Ondansetron HCl 4 mg 11/20/24 01:33 Ondansetron Inj 2 Mg/Ml Inj 2 Ml IV 12/20/24 01:32 Q6H PRN NAUSEA OR VOMITING Protocol Plan 74-year-old female with past medical history of hypertension, hyperlipidemia, cgc-hloixid-jfplxrpib type 2 diabetes, and breast cancer (s/p mastectomy) who came to the ED on 11/20/2024 for evaluation of 1 day of worsening shortness of breath with associated cough and was admitted due to acute hypoxic respiratory failure secondary to CAP and possible CHF for treatment and management. #Acute hypoxic respiratory failure, improving #Sepsis, resolved #Community acquired pneumonia #New onset HF exacerbation (diastolic stage 2 dysfunction with preserved EF 55-60%) Most likely due to bilateral community-acquired pneumonia with CHF contributing. 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 Will continue with antibiotics and diuresis. On admission, 11/20/24: Initial ABG shows pH of 7.44, pCO2 of 41, pO2 of 98, bicarb 21, Lactate 3.4, Procalc 3.3, BNP ~1000 Pt met 3/4 Sepsis criteria including Tachycardia, tachypnea and fever, qSOFA: 1 point Cocci IgM & IgG negative, RSV negative, COVID, influenza negative. 11/20/24: Breathing has improved. Holding Farxiga due to soft blood pressure. A1c 12.7, TSH 3.08 11/21/24: Echo showed diastolic stage 2 dysfunction with preserved EF 55-60%. ? Continue Lasix 40 mg IV daily ? Strict LYNETTE's ? Daily weights ? Fluid restriction of 1500 mL ? BiPAP as needed ? Keep magnesium and potassium above 2 and 4 respectively to avoid any cardiac arrhythmias ? Cardiology Dr. Taylor consulted, recommends continue pneumonia treatment ? Rocephin and azithromycin started 11/20/24- ? MRSA nares pending ? Sputum culture pending ? Chest physiotherapy - vibration #Hypertriglyceridemia #Hyperlipidemia Lipid panel positive for triglycerides>500. TG 520, TC 135, LDL not measured, HDL <5 - Continue atorvastatin 40 mg HS - Started fenofibrate 145 mg qday - Low fat diet #Non-insulin dependent type II Diabetes mellitus A1c 12.7% ? Insulin glargine 10 U daily ? Sliding scale insulin ? Hypoglycemic protocol in place ? Blood sugar checks with meals #Hypertension Chronic ? Holding blood pressure medicines as blood pressures soft at this point ? Pending med rec #Normocytic anemia MCV 81, could be chronic, Hgb 11.4 Iron panel suggestive of iron deficiency. Reticulocyte count normal. ? Trend CBC ? Peripheral blood smear pending - Consider starting iron supplements on discharge #Gastritis Chronic condition. ? Protonix 40 mg daily #Lactic acidosis, resolved Health maintenance: FEN: consistent carbohydrate low, low fat DVT prophylaxis: heparin sc GI prophylaxis: none Dispo: telemetry CODE STATUS: Full code Patient plan of care was discussed with the attending physician, Dr. Carlisle. Judith Rothman, PGY-2 Attending Provider Attestation/Addendum I have examined the patient, reviewed labs and imaging findings, discussed the case with the resident(s), and reviewed entered orders. I agree with the plan of care as outlined in this note, with these additional summaries/recommendations: Patient doing well today. Continue to diurese and titrate oxygen as able. Currently pending final cultures. Anticipate discharge in next 24-48hours. Power Carlisle MD
--- NOTE | 2024-11-21 15:22 | PC.SS ---
rounding note: New onset of CHF. Pending echo. Tentative d/c plan is to return home with family.
[2024-11-21] MEDS: cefTRIAXone/D5w 1gm IV premix 1 GM/50 ML BAG IV (21:18)
[2024-11-21] MEDS: ATORVASTATIN CALCIUM 20 MG TABLET 40 MG PO (21:18)
[2024-11-21] MEDS: AZITHROMYCIN INJ 500 MG in SODIUM CHLORIDE 0.9% 250 ML 250 ML 250 MG IV (21:18)
--- NOTE | 2024-11-21 21:28 | PC.NURSE ---
FSBS AT 306. SPOKE WITH DR. MCALLISTER REGARDING NO COVERAGE AT . TO PLACE ORDERS.
[2024-11-22] VITALS (13 sets, daily range): BP systolic 93–123; BP diastolic 55–69; PULSE 75–103; RESP 14–100; TEMP 36.1–36.6; O2SAT 91–100; BMI 23.6
[2024-11-22 06:16] LABS: Basophils # (Auto) 0.1 Thou/mm3 (0.0-0.2); Basophils % (Auto) 1 % (0-2.5); Eosinophils % (Auto) 0 % (0-10); Hematocrit 26.8 % (36.0-46.0); Hemoglobin 9.5 g/dL (12.0-16.0); Immature Granulocytes % (Auto) 4 % (0-0); Immature Granulocytes Auto 0.46 Thou/mm3 (0.00-0.00); Lymphocytes # (Auto) 1.3 Thou/mm3 (1.0-4.8); Lymphocytes % (Auto) 11 % (10-50); Mean Corpuscular HGB Conc 35.4 g/dl (31.0-37.0); Mean Corpuscular Hemoglobin 29.2 pg (25.0-35.0); Mean Corpuscular Volume 83 fL (80-100); Monocytes # (Auto) 0.7 Thou/mm3 (0.0-0.8); Monocytes % (Auto) 6 % (0-12); Neutrophils % (Auto) 79 % (37-80); Nucleated Red Blood Cell % 0 /100 WBC (0); Platelet Count 455 Thou/mm3 (140-440); RDW Standard Deviation 42.5 fL (36.4-46.3); Red Blood Count 3.25 Miln/mm3 (4.00-5.20); White Blood Count 12.5 Thou/mm3 (3.6-11.0)
[2024-11-22 06:40] LABS: Alanine Aminotransferase 19 U/L (10-49); Albumin, Serum 2.9 gm/dL (3.4-4.8); Alkaline Phosphatase 170 U/L (46-116); Anion Gap 4 (7-16); Aspartate Amino Transferase 28 U/L (0-34); BUN/Creatinine Ratio 31 Ratio (12-20); Bilirubin,Total 0.4 mg/dL (0.3-1.2); Blood Urea Nitrogen 28 mg/dL (9-23); Calcium 8.2 mg/dL (8.3-10.6); Calcium (Corrected) 9.1 mg/dL (8.5-10.1); Carbon Dioxide 24.5 mMol/L (20.0-31.0); Chloride 103 mMol/L (98-107); Creatinine (Component) 0.9 mg/dL (0.6-1.3); Estimated Creatinine Clearance 42.1 mL/min (>60); Globulin 2.9 gm/dL (2.3-3.5); Glucose 232 mg/dL (74-106); Magnesium 2.6 mg/dL (1.6-2.6); Osmolality,Calculated 275 (275-295); Phosphorous 2.9 mg/dL (2.4-5.1); Potassium 4.7 mMol/L (3.4-5.1); Sodium 131 mMol/L (136-145); Total Protein 5.8 gm/dL (5.7-8.2); eGFR > 60 See Note
[2024-11-22] MEDS: ALBUTEROL/IPRATROPIUM (Duoneb) RT SOL 3 ML NEBU INH ×3 (06:49→22:15)
[2024-11-22] MEDS: INSULIN LISPRO (AdmeLOG) 1 UNIT/0.01 ML UNIT SC ×4 (07:33→20:29)
--- NOTE | 2024-11-22 07:50 | PD.IMPROG ---
Documentation for date of: 11/22/24 Subjective Subjective Interval history: on antibiotics Exam Vital Signs Temp Pulse Resp BP Pulse Ox O2 Del Method O2 Flow Rate 97.0 F 77 18 123/69 100 BiPAP 3 11/22/24 04:00 11/22/24 07:00 11/22/24 07:00 11/22/24 04:00 11/22/24 06:52 11/22/24 04:00 11/22/24 07:00 FiO2 35 11/22/24 02:25 Routine HEENT Exam Head: Present normocephalic and atraumatic Eye: Present EOMI and PERRL ENT: Present mucous membranes moist Routine Neck Exam Neck: Present supple and trachea midline Routine Respiratory Exam Respiratory: Present chest non-tender, lungs clear, normal breath sounds and no resp distress Routine Cardiovascular Exam Cardiovascular: Present RRR Routine Abdominal Exam Abdominal: Present soft and normoactive bowel sounds Routine Extremities Exam Extremities: Present full ROM Routine Skin Exam Skin: Present intact, dry and warm Objective Labs 11/22/24 05:27 11/22/24 05:27 Labs: Laboratory Results - last 24 hr 11/20/24 11/22/24 03:30 05:27 WBC 12.5 H RBC 3.25 L Hgb 9.5 L Hct 26.8 L MCV 83 MCH 29.2 MCHC 35.4 RDW Std Deviation 42.5 Plt Count 455 H D Neut % (Auto) 79 Lymph % (Auto) 11 Holmes % (Auto) 6 Eos % (Auto) 0 Baso % (Auto) 1 Neut # (Auto) 10.0 H Lymph # (Auto) 1.3 Holmes # (Auto) 0.7 Eos # (Auto) 0.0 Baso # (Auto) 0.1 Immature Gran # (Auto) 0.46 H Absolute Nucleated RBC 0.00 Immature Gran % 4 H Nucleated RBC % 0 Sodium 131 L Potassium 4.7 Chloride 103 Carbon Dioxide 24.5 Anion Gap 4 L BUN 28 H Creatinine 0.9 Estim Creat Clear Calc 42.1 L eGFR > 60 BUN/Creatinine Ratio 31 H Glucose 232 H D Calculated Osmolality 275 Calcium 8.2 L Corrected Calcium 9.1 Phosphorus 2.9 Magnesium 2.6 Total Bilirubin 0.4 AST 28 ALT 19 Alkaline Phosphatase 170 H Total Protein 5.8 Albumin 2.9 L Globulin 2.9 Albumin/Globulin Ratio 1.0 L Coccidioides IgG Ab Negative ABG Interpretation ABG results: 11/20/24 01:13 ABG pH 7.44 ABG pCO2 31 L ABG pO2 90 ABG HCO3 21 ABG O2 Saturation 98 ABG Base Excess -2 Assessment & Plan A&P Narrative continue treatment for pneumonia with antibiotics obtain Echo pt HR improved - In sinus Time Spent With Patient Time: Total time spent is greater than 50% in coordination of care (as documented) at patient's floor/unit and/or counseling patient:
--- NOTE | 2024-11-22 08:32 | PC.NURSE ---
Called to pharmacy [facility] for Tricor dose.
[2024-11-22] MEDS: HEPARIN SOD INJ 5000 UNIT/ML VIAL SC ×2 (08:38→20:16)
[2024-11-22] MEDS: ESCITALOPRAM OXALATE 10 MG TABLET PO (08:38)
[2024-11-22] MEDS: INSULIN GLARGINE (Lantus) 5 UNIT/0.05 ML (PER 5 UNITS) 12 UNIT SC (08:38)
[2024-11-22] MEDS: FUROSEMIDE INJ 10 MG/ML 4ML VIAL 40 MG IVP (08:38)
[2024-11-22] MEDS: DOXYCYCLINE 100 MG TABLET PO ×2 (10:23→20:16)
--- NOTE | 2024-11-22 10:54 | CHAP ---
Patient was visited by a Spiritual Care Volunteer on 11/22/2024 between 0900 and 0930 and received comfort, encouragement and/or prayer.
--- NOTE | 2024-11-22 11:16 | ESPR_ITS ---
<Statement entered by Beth Johnson MD - 11/30/24 09:20> I reviewed above note and agree with findings and plans. I have also personally examined the patient with medicine team and went over assessment and plan with medical team including internist and resident physician. Documentation for date of: 11/22/24 Subjective Subjective Interval history: Patient seen and examined at bedside. Labs and vitals reviewed. Patient is -1.2 L since yesterday, will continue IV Lasix 40 mg today. Continue BiPAP at night. Patient received azithromycin IV x 3, will start patient on doxycycline for MRSA coverage. Patient is otherwise stable on 2 L nasal cannula. Exam Vital Signs Temp Pulse Resp BP Pulse Ox O2 Del Method O2 Flow Rate 97.8 F 79 18 111/61 100 Nasal Cannula 2 11/22/24 08:00 11/22/24 08:38 11/22/24 08:00 11/22/24 08:38 11/22/24 08:00 11/22/24 08:00 11/22/24 08:00 FiO2 35 11/22/24 02:25 Narrative Exam Physical Exam General: Awake and in no acute distress. Conversational and non-toxic appearing. HEENT: Normocephalic, atraumatic, mucous membranes moist. Heart: Regular rate and rhythm, systolic murmur at the left sternal border. Lungs: Bilateral rhonchi and crackles. Abdomen: Soft, nondistended, nontender, positive bowel sounds. ?No guarding or rebound tenderness. Neurologic: Alert and oriented x3, no gross neurological deficit, and patient able to move all 4 extremities. Extremities: Trace edema. Skin: No rash or ecchymoses. Objective Labs 11/22/24 05:27 11/22/24 05:27 Labs: Laboratory Results - last 24 hr 11/20/24 11/22/24 03:30 05:27 WBC 12.5 H RBC 3.25 L Hgb 9.5 L Hct 26.8 L MCV 83 MCH 29.2 MCHC 35.4 RDW Std Deviation 42.5 Plt Count 455 H D Neut % (Auto) 79 Lymph % (Auto) 11 Mckenzie % (Auto) 6 Eos % (Auto) 0 Baso % (Auto) 1 Neut # (Auto) 10.0 H Lymph # (Auto) 1.3 Mckenzie # (Auto) 0.7 Eos # (Auto) 0.0 Baso # (Auto) 0.1 Immature Gran # (Auto) 0.46 H Absolute Nucleated RBC 0.00 Immature Gran % 4 H Nucleated RBC % 0 Sodium 131 L Potassium 4.7 Chloride 103 Carbon Dioxide 24.5 Anion Gap 4 L BUN 28 H Creatinine 0.9 Estim Creat Clear Calc 42.1 L eGFR > 60 BUN/Creatinine Ratio 31 H Glucose 232 H D Calculated Osmolality 275 Calcium 8.2 L Corrected Calcium 9.1 Phosphorus 2.9 Magnesium 2.6 Total Bilirubin 0.4 AST 28 ALT 19 Alkaline Phosphatase 170 H Total Protein 5.8 Albumin 2.9 L Globulin 2.9 Albumin/Globulin Ratio 1.0 L Coccidioides IgG Ab Negative ABG Interpretation ABG results: 11/20/24 01:13 ABG pH 7.44 ABG pCO2 31 L ABG pO2 90 ABG HCO3 21 ABG O2 Saturation 98 ABG Base Excess -2 Quality Measures Quality Measures sepsis Current suspected stage: ruled out Possible source: pulmonary Blood cultures ordered: yes Antibiotic ordered: Yes Advance care planning discussed with:: patient Assessment & Plan Assessment Current Active Medications: Generic Name Dose Route Start Last Admin Trade Name Freq PRN Reason Stop Dose Admin Acetaminophen 650 mg 11/20/24 01:33 Acetaminophen 325 Mg Tablet PO 12/20/24 01:32 Q6H PRN Fever >100 or pain 1-3 Albuterol/Ipratropium 3 ml 11/20/24 07:00 11/22/24 06:49 Albuterol/Ipratropium (Duoneb) Rt Jillian 3 Ml Nebu INH 12/20/24 06:59 3 ml Q8H JERARDO Administration Atorvastatin Calcium 40 mg 11/20/24 21:00 11/21/24 21:18 Atorvastatin Calcium 20 Mg Tablet PO 12/20/24 20:59 40 mg HS JERARDO Administration Benzonatate 100 mg 11/20/24 01:39 11/21/24 08:45 Benzonatate 100 Mg Capsule PO 12/20/24 08:59 100 mg BID PRN Administration cough Protocol Tejal (Vonoprazan 0 ea 11/20/24 11:00 11/22/24 08:32 ) 10 Mg Tablet PO 12/20/24 10:59 Not Given DAILY JERARDO Dextrose 50 ml 11/20/24 01:44 Dextrose 50%-Water Inj 50 Ml Syringe IV 12/20/24 01:43 Q15MIN PRN BG <50 OR BG <70 & pt unresponsive Dextrose 25 ml 11/20/24 01:44 Dextrose 50%-Water Inj 50 Ml Syringe IV 12/20/24 01:43 Q15MIN PRN BG 50-70 responsive npo pt Doxycycline Hyclate 100 mg 11/22/24 10:15 11/22/24 10:23 Doxycycline 100 Mg Tablet PO 11/29/24 10:14 100 mg BID JERARDO Administration Escitalopram Oxalate 10 mg 11/20/24 09:00 11/22/24 08:38 Escitalopram Oxalate 10 Mg Tablet PO 12/20/24 08:59 10 mg QDAY JERARDO Administration Fenofibrate 145 mg 11/21/24 09:00 11/22/24 10:11 Fenofibrate 145 Mg Tablet (Non-Formulary) PO 12/21/24 08:59 Not Given QDAY JERARDO Furosemide 40 mg 11/20/24 09:00 11/22/24 08:38 Furosemide Inj 10 Mg/Ml 4ml Vial IVP 12/20/24 08:59 40 mg QDAY JERARDO Administration Glucagon 1 mg 11/20/24 01:44 Glucagon Inj 1 Mg Vial IM Q15MIN PRN BG <70, and no IV access Heparin Sodium (Porcine) 5,000 unit 11/20/24 09:00 11/22/24 08:38 Heparin Sod Inj 5000 Unit/Ml Vial SC 12/04/24 08:59 5,000 unit Q12H JERARDO Administration Ceftriaxone Sodium/Dextrose 1 gm in 50 mls @ 100 mls/hr 11/20/24 21:00 11/21/24 21:18 Rocephin/D5w 1gm Iv Premix IV 11/27/24 08:59 100 mls/hr QDAY@2100 JERARDO Administration Insulin Glargine 12 unit 11/22/24 09:00 11/22/24 08:38 Insulin Glargine (Lantus) 5 Unit/0.05 Ml (Per 5 Units) SC 12/22/24 08:59 12 unit QDAY JERARDO Administration Insulin Human Lispro 0 unit 11/21/24 21:45 11/22/24 07:33 Insulin Lispro (Admelog) 1 Unit/0.01 Ml Unit SC 12/21/24 21:44 2 unit ACHS JERARDO Administration Protocol Ondansetron HCl 4 mg 11/20/24 01:33 Ondansetron Inj 2 Mg/Ml Inj 2 Ml IV 12/20/24 01:32 Q6H PRN NAUSEA OR VOMITING Protocol Plan 74-year-old female with past medical history of hypertension, hyperlipidemia, uew-evekiho-kiksrocse type 2 diabetes, and breast cancer (s/p mastectomy) who came to the ED on 11/20/2024 for evaluation of 1 day of worsening shortness of breath with associated cough and was admitted due to acute hypoxic respiratory failure secondary to CAP and possible CHF for treatment and management. #Acute hypoxic respiratory failure, improving #Sepsis, resolved #Community acquired pneumonia #New onset HF exacerbation (diastolic stage 2 dysfunction with preserved EF 55- 60%) Most likely due to bilateral community-acquired pneumonia with CHF contributing. 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 Will continue with antibiotics and diuresis. On admission, 11/20/24: Initial ABG shows pH of 7.44, pCO2 of 41, pO2 of 98, bicarb 21, Lactate 3.4, Procalc 3.3, BNP ~1000 Pt met 3/4 Sepsis criteria including Tachycardia, tachypnea and fever, qSOFA: 1 point Cocci IgM & IgG negative, RSV negative, COVID, influenza negative. 11/20/24: Breathing has improved. Holding Farxiga due to soft blood pressure. A1c 12.7, TSH 3.08 Received azithromycin 11/20/24-11/22/24 11/21/24: Echo showed diastolic stage 2 dysfunction with preserved EF 55-60%. ? Continue Lasix 40 mg IV daily ? Strict I&O's ? Daily weights ? Fluid restriction of 1500 mL ? BiPAP at night ? Keep magnesium and potassium above 2 and 4 respectively to avoid any cardiac arrhythmias ? Cardiology Dr. Taylor consulted, recommends continue pneumonia treatment ? Rocephin 11/20/24-, doxycycline 11/22/24- ? MRSA nares pending ? Sputum culture pending ? Chest physiotherapy - vibration #Hypertriglyceridemia #Hyperlipidemia Lipid panel positive for triglycerides>500. TG 520, TC 135, LDL not measured, HDL <5 - Continue atorvastatin 40 mg HS - Started fenofibrate 145 mg qday - Low fat diet #Non-insulin dependent type II Diabetes mellitus A1c 12.7% ? Insulin glargine 12 U daily ? Sliding scale insulin ? Hypoglycemic protocol in place ? Blood sugar checks with meals ? Diabetic education #Hypertension Chronic ? Holding blood pressure medicines as blood pressures soft at this point #Normocytic anemia MCV 81, could be chronic, Hgb 11.4 Iron panel suggestive of iron deficiency. Reticulocyte count normal. ? Trend CBC ? Peripheral blood smear pending - Consider starting iron supplements on discharge #Gastritis Chronic condition. ? Protonix 40 mg daily #Lactic acidosis, resolved Health maintenance: FEN: consistent carbohydrate low, low fat DVT prophylaxis: heparin sc GI prophylaxis: none Dispo: telemetry CODE STATUS: Full code Patient plan of care was discussed with the attending physician, Dr. Elizabeth Issa PGY1
--- NOTE | 2024-11-22 12:31 | PC.SS ---
Update: Patient receiving IV antibiotics. Blood cultures are pending.
[2024-11-22] MEDS: ACETAMINOPHEN 325 MG TABLET 650 MG PO (17:36)
[2024-11-22] MEDS: cefTRIAXone/D5w 1gm IV premix 1 GM/50 ML BAG IV (20:15)
[2024-11-22] MEDS: ATORVASTATIN CALCIUM 20 MG TABLET 40 MG PO (20:16)
[2024-11-22] MEDS: HYDROcodone/APAP 5/325 TABLET 1 TAB PO (21:06)
[2024-11-23] VITALS (11 sets, daily range): BP systolic 99–123; BP diastolic 59–70; PULSE 77–105; RESP 14–27; TEMP 35.9–36.7; O2SAT 90–100; BMI 23.8; BMI 24.0; BMI 14.0
--- NOTE | 2024-11-23 03:51 | PC.NURSE ---
[employer] downtime occurred on <11/23/24> from <0200> to <0350>.
[2024-11-23 05:23] LABS: Basophils # (Auto) 0.1 Thou/mm3 (0.0-0.2); Basophils % (Auto) 1 % (0-2.5); Eosinophils # (Auto) 0.2 Thou/mm3 (0.0-0.5); Eosinophils % (Auto) 1 % (0-10); Hematocrit 30.4 % (36.0-46.0); Hemoglobin 10.3 g/dL (12.0-16.0); Immature Granulocytes % (Auto) 10 % (0-0); Immature Granulocytes Auto 1.18 Thou/mm3 (0.00-0.00); Lymphocytes # (Auto) 1.9 Thou/mm3 (1.0-4.8); Lymphocytes % (Auto) 15 % (10-50); Mean Corpuscular HGB Conc 33.9 g/dl (31.0-37.0); Mean Corpuscular Hemoglobin 28.3 pg (25.0-35.0); Mean Corpuscular Volume 84 fL (80-100); Monocytes # (Auto) 0.8 Thou/mm3 (0.0-0.8); Monocytes % (Auto) 6 % (0-12); Neutrophils # (Auto) 8.3 Thou/mm3 (1.8-7.7); Neutrophils % (Auto) 67 % (37-80); Nucleated Red Blood Cell % 0 /100 WBC (0); Platelet Count 404 Thou/mm3 (140-440); RDW Standard Deviation 44.4 fL (36.4-46.3); Red Blood Count 3.64 Miln/mm3 (4.00-5.20); White Blood Count 12.4 Thou/mm3 (3.6-11.0)
[2024-11-23 05:50] LABS: Alanine Aminotransferase 23 U/L (10-49); Albumin, Serum 2.9 gm/dL (3.4-4.8); Albumin/Globulin Ratio 0.9 (1.2-2.2); Alkaline Phosphatase 181 U/L (46-116); Anion Gap 2 (7-16); Aspartate Amino Transferase 48 U/L (0-34); BUN/Creatinine Ratio 30 Ratio (12-20); Bilirubin,Total 0.4 mg/dL (0.3-1.2); Blood Urea Nitrogen 24 mg/dL (9-23); Calcium 8.5 mg/dL (8.3-10.6); Calcium (Corrected) 9.4 mg/dL (8.5-10.1); Carbon Dioxide 30.7 mMol/L (20.0-31.0); Chloride 103 mMol/L (98-107); Creatinine (Component) 0.8 mg/dL (0.6-1.3); Estimated Creatinine Clearance 47.3 mL/min (>60); Globulin 3.1 gm/dL (2.3-3.5); Glucose 80 mg/dL (74-106); Magnesium 2.3 mg/dL (1.6-2.6); Osmolality,Calculated 274 (275-295); Phosphorous 3.3 mg/dL (2.4-5.1); Potassium 5.3 mMol/L (3.4-5.1); Sodium 136 mMol/L (136-145); eGFR > 60 See Note
[2024-11-23] MEDS: ALBUTEROL/IPRATROPIUM (Duoneb) RT SOL 3 ML NEBU INH ×3 (06:07→22:30)
[2024-11-23] MEDS: ACETAMINOPHEN 325 MG TABLET 650 MG PO ×2 (07:35→19:36)
[2024-11-23] MEDS: DOXYCYCLINE 100 MG TABLET PO ×2 (09:14→20:10)
[2024-11-23] MEDS: FUROSEMIDE INJ 10 MG/ML 4ML VIAL 40 MG IVP (09:14)
[2024-11-23] MEDS: ESCITALOPRAM OXALATE 10 MG TABLET PO (09:14)
[2024-11-23] MEDS: FENOFIBRATE 145 MG TABLET (NON-FORMULARY) PO (09:15)
[2024-11-23] MEDS: [UNRECOGNIZED DRUG - OTHER] PO (09:15)
[2024-11-23] MEDS: HEPARIN SOD INJ 5000 UNIT/ML VIAL SC ×2 (09:20→20:11)
[2024-11-23] MEDS: INSULIN LISPRO (AdmeLOG) 1 UNIT/0.01 ML UNIT SC ×3 (11:41→20:10)
--- NOTE | 2024-11-23 12:20 | PC.SS ---
Update: Cardiology clearance is pending. Plan will be for the patient to d/c home.
[2024-11-23 13:42] LABS: Anion Gap 4 (7-16); BUN/Creatinine Ratio 25 Ratio (12-20); Blood Urea Nitrogen 20 mg/dL (9-23); Calcium 8.1 mg/dL (8.3-10.6); Calcium (Corrected) 8.9 mg/dL (8.5-10.1); Carbon Dioxide 31.4 mMol/L (20.0-31.0); Chloride 100 mMol/L (98-107); Creatinine (Component) 0.8 mg/dL (0.6-1.3); Estimated Creatinine Clearance 49.4 mL/min (>60); Glucose 157 mg/dL (74-106); Osmolality,Calculated 275 (275-295); Potassium 4.1 mMol/L (3.4-5.1); Sodium 135 mMol/L (136-145); eGFR > 60 See Note
--- NOTE | 2024-11-23 13:44 | ESPR_ITS ---
<Statement entered by Beth Johnson MD - 11/30/24 09:24> I reviewed above note and agree with findings and plans. I have also personally examined the patient with medicine team and went over assessment and plan with medical team including logistics intern and resident physician. <Statement entered by Marcelo Terry MD - 11/24/24 15:24> I discussed with and supervised the logistics intern physician involved in the care of this patient. Patient assessment and plan was discussed with entire medicine team, including my attending. I agree with the assessment and plan as documented by logistics intern doctor. Patient care was discussed with my attending physician Dr. Elizabeth Terry, PGY-2 Documentation for date of: 11/23/24 Subjective Subjective Interval history: Patient seen and examined at bedside. Labs and vitals reviewed. Patient was about - 2 L net negative this morning, has decreased oxygen requirement currently saturating well on 1L. Patient's potassium 5.3 this morning, will repeat renal panel later today We will continue ceftriaxone and doxycycline. Discontinued IV Lasix, will start on p.o. Lasix 40 mg starting tomorrow Patient is pending physical therapy evaluation. Anticipate discharge in the next 24 hours after physical therapy recommendations. Exam Vital Signs Temp Pulse Resp BP Pulse Ox O2 Del Method O2 Flow Rate 97.5 F 80 16 113/70 93 L Nasal Cannula 1 11/23/24 12:00 11/23/24 12:00 11/23/24 12:00 11/23/24 12:00 11/23/24 12:00 11/23/24 12:00 11/23/24 12:00 FiO2 35 11/23/24 06:08 Narrative Exam Physical Exam General: Awake and in no acute distress. Conversational and non-toxic appearing. HEENT: Normocephalic, atraumatic, mucous membranes moist. Heart: Regular rate and rhythm, systolic murmur at the left sternal border. Lungs: Bilateral rhonchi and crackles. Abdomen: Soft, nondistended, nontender, positive bowel sounds. ?No guarding or rebound tenderness. Neurologic: Alert and oriented x3, no gross neurological deficit, and patient able to move all 4 extremities. Extremities: Minimal edema. Skin: No rash or ecchymoses. Objective Labs 11/23/24 04:50 11/23/24 13:07 Labs: Laboratory Results - last 24 hr 11/23/24 04:50 WBC 12.4 H RBC 3.64 L Hgb 10.3 L Hct 30.4 L MCV 84 MCH 28.3 MCHC 33.9 RDW Std Deviation 44.4 Plt Count 404 D Neut % (Auto) 67 Lymph % (Auto) 15 Guthrie % (Auto) 6 Eos % (Auto) 1 Baso % (Auto) 1 Neut # (Auto) 8.3 H Lymph # (Auto) 1.9 Guthrie # (Auto) 0.8 Eos # (Auto) 0.2 Baso # (Auto) 0.1 Immature Gran # (Auto) 1.18 H Absolute Nucleated RBC 0.00 Immature Gran % 10 H Nucleated RBC % 0 Sodium 136 Potassium 5.3 H D Chloride 103 Carbon Dioxide 30.7 Anion Gap 2 L BUN 24 H Creatinine 0.8 Estim Creat Clear Calc 47.3 L eGFR > 60 BUN/Creatinine Ratio 30 H Glucose 80 D Calculated Osmolality 274 L Calcium 8.5 Corrected Calcium 9.4 Phosphorus 3.3 Magnesium 2.3 Total Bilirubin 0.4 AST 48 H ALT 23 Alkaline Phosphatase 181 H Total Protein 6.0 Albumin 2.9 L Globulin 3.1 Albumin/Globulin Ratio 0.9 L ABG Interpretation ABG results: 11/20/24 01:13 ABG pH 7.44 ABG pCO2 31 L ABG pO2 90 ABG HCO3 21 ABG O2 Saturation 98 ABG Base Excess -2 Quality Measures Quality Measures sepsis Current suspected stage: ruled out Possible source: pulmonary Blood cultures ordered: yes Antibiotic ordered: Yes Advance care planning discussed with:: patient Assessment & Plan Assessment Current Active Medications: Generic Name Dose Route Start Last Admin Trade Name Freq PRN Reason Stop Dose Admin Acetaminophen 650 mg 11/20/24 01:33 11/23/24 07:35 Acetaminophen 325 Mg Tablet PO 12/20/24 01:32 650 mg Q6H PRN Administration Fever >100 or pain 1-3 Albuterol/Ipratropium 3 ml 11/20/24 07:00 11/23/24 06:07 Albuterol/Ipratropium (Duoneb) Rt Jillian 3 Ml Nebu INH 12/20/24 06:59 3 ml Q8H JERARDO Administration Atorvastatin Calcium 40 mg 11/20/24 21:00 11/22/24 20:16 Atorvastatin Calcium 20 Mg Tablet PO 12/20/24 20:59 40 mg HS JERARDO Administration Benzonatate 100 mg 11/20/24 01:39 11/21/24 08:45 Benzonatate 100 Mg Capsule PO 12/20/24 08:59 100 mg BID PRN Administration cough Protocol Voquekayodeza (Vonoprazan 0 ea 11/20/24 11:00 11/23/24 09:15 ) 10 Mg Tablet PO 12/20/24 10:59 1 tablet DAILY JERARDO Administration Dextrose 50 ml 11/20/24 01:44 Dextrose 50%-Water Inj 50 Ml Syringe IV 12/20/24 01:43 Q15MIN PRN BG <50 OR BG <70 & pt unresponsive Dextrose 25 ml 11/20/24 01:44 Dextrose 50%-Water Inj 50 Ml Syringe IV 12/20/24 01:43 Q15MIN PRN BG 50-70 responsive npo pt Doxycycline Hyclate 100 mg 11/22/24 10:15 11/23/24 09:14 Doxycycline 100 Mg Tablet PO 11/29/24 10:14 100 mg BID JERARDO Administration Escitalopram Oxalate 10 mg 11/20/24 09:00 11/23/24 09:14 Escitalopram Oxalate 10 Mg Tablet PO 12/20/24 08:59 10 mg QDAY JERARDO Administration Fenofibrate 145 mg 11/21/24 09:00 11/23/24 09:15 Fenofibrate 145 Mg Tablet (Non-Formulary) PO 12/21/24 08:59 145 mg QDAY JERARDO Administration Furosemide 40 mg 11/20/24 09:00 11/23/24 09:14 Furosemide Inj 10 Mg/Ml 4ml Vial IVP 12/20/24 08:59 40 mg QDAY JERARDO Administration Glucagon 1 mg 11/20/24 01:44 Glucagon Inj 1 Mg Vial IM Q15MIN PRN BG <70, and no IV access Heparin Sodium (Porcine) 5,000 unit 11/20/24 09:00 11/23/24 09:20 Heparin Sod Inj 5000 Unit/Ml Vial SC 12/04/24 08:59 5,000 unit Q12H JERARDO Administration Ceftriaxone Sodium/Dextrose 1 gm in 50 mls @ 100 mls/hr 11/20/24 21:00 11/22/24 23:28 Rocephin/D5w 1gm Iv Premix IV 11/27/24 08:59 Infused QDAY@2100 JERARDO Infusion Insulin Glargine 12 unit 11/22/24 09:00 11/23/24 10:10 Insulin Glargine (Lantus) 5 Unit/0.05 Ml (Per 5 Units) SC 12/22/24 08:59 Not Given QDAY [facility] Insulin Human Lispro 0 unit 11/21/24 21:45 11/23/24 11:41 Insulin Lispro (Admelog) 1 Unit/0.01 Ml Unit SC 12/21/24 21:44 1 unit ACHS [facility] Administration Protocol Lidocaine 1 patch 11/23/24 09:44 Lidocaine 5% 1 Patch TOP 12/23/24 09:43 UD PRN PAIN Ondansetron HCl 4 mg 11/20/24 01:33 Ondansetron Inj 2 Mg/Ml Inj 2 Ml IV 12/20/24 01:32 Q6H PRN NAUSEA OR VOMITING Protocol Plan 74-year-old female with past medical history of hypertension, hyperlipidemia, [id number] type 2 diabetes, and breast cancer (s/p mastectomy) who came to the ED on 11/20/2024 for evaluation of 1 day of worsening shortness of breath with associated cough and was admitted due to acute hypoxic respiratory failure secondary to CAP and possible CHF for treatment and management. #Acute hypoxic respiratory failure, improving #Sepsis, resolved #Community acquired pneumonia #New onset HF exacerbation (diastolic stage 2 dysfunction with preserved EF 55- 60%) Most likely due to bilateral community-acquired pneumonia with CHF contributing. Patient denies following up with smasher. Will continue with antibiotics and diuresis. On admission, 11/20/24: Initial ABG shows pH of 7.44, pCO2 of 41, pO2 of 98, bicarb 21, Lactate 3.4, Procalc 3.3, BNP ~1000 Pt met 3/4 Sepsis criteria including Tachycardia, tachypnea and fever, qSOFA: 1 point Cocci IgM & IgG negative, RSV negative, COVID, influenza negative. 11/20/24: Breathing has improved. Holding Farxiga due to soft blood pressure. A1c 12.7, TSH 3.08 Received azithromycin 11/20/24-11/22/24 11/21/24: Echo showed diastolic stage 2 dysfunction with preserved EF 55-60%. ? Discontinued IV Lasix, started on Lasix 40 mg p.o. daily ? Strict I&O's ? Daily weights ? Fluid restriction of 1500 mL ? BiPAP at night ? Keep magnesium and potassium above 2 and 4 respectively to avoid any cardiac arrhythmias ? Cardiology Dr. Taylor consulted, recommends continue pneumonia treatment ? Rocephin 11/20/24-, doxycycline 11/22/24- ? MRSA nares pending ? Sputum culture pending ? Chest physiotherapy - vibration #Hypertriglyceridemia #Hyperlipidemia Lipid panel positive for triglycerides>500. TG 520, TC 135, LDL not measured, HDL <5 - Continue atorvastatin 40 mg HS - Started fenofibrate 145 mg qday - Low fat diet #Non-insulin dependent type II Diabetes mellitus A1c 12.7% ? Insulin glargine 12 U daily ? Sliding scale insulin ? Hypoglycemic protocol in place ? Blood sugar checks with meals ? Diabetic education #Hypertension Chronic ? Holding blood pressure medicines as blood pressures soft at this point #Normocytic anemia MCV 81, could be chronic, Hgb 11.4 Iron panel suggestive of iron deficiency. Reticulocyte count normal. ? Trend CBC ? Peripheral blood smear pending - Consider starting iron supplements on discharge #Gastritis Chronic condition. ? Protonix 40 mg daily #Lactic acidosis, resolved Health maintenance: FEN: consistent carbohydrate low, low fat DVT prophylaxis: heparin sc GI prophylaxis: none Dispo: telemetry CODE STATUS: Full code Patient plan of care was discussed with the attending physician, Dr. Johnson and senior PGY 2 Dr[address] Terry. Praneeth Issa PGY1
--- NOTE | 2024-11-23 13:48 | PC.CC ---
Addendum entered and electronically signed by Kim Lowe [facility] 11/23/24 15:13: [Note from director of student financial aid Beata below] I also educated her daughter, who serves as her primary caregiver, on the proper administration of insulin doses and the correct use of a glucometer. Additionally, I introduced the continuous glucose monitor (CGM) to the patient's daughter, who expressed interest in using it to monitor her mother's blood sugar via her phone. She also learned how to properly place the CGM sensor on her mother?s arm. Education included a comparison of the CGM and glucometer, emphasizing the benefits of the CGM. Throughout the session, the daughter was actively engaged, asking insightful questions about the CGM. By the end of the session, she had a clear understanding of A1c, how to use an insulin pen, and how to monitor her mother's blood glucose levels using the Freestyle Binta 3 sensor and its accompanying phone berkley. Original Note: DM education given to daughter, Monica, by director of student financial aid Beata. Daughter agreeable to CGM. Order signed by Dr. Johnson and submitted via [place] to [employer].
--- NOTE | 2024-11-23 15:30 | PC.NURSE ---
Patient is on 2L nasal cannula, this nurse removed the patients nasal cannula and the patient desaturated to 86% within 5 minutes. The nasal cannula was reapplied to the patient and the patients saturation quickly came back to 97% o2 at 2L.
--- NOTE | 2024-11-23 15:51 | PC.SS ---
Walkers The diagnosis creates mobility limitation that significantly impairs ability to participate in the patients activities of daily living either in their entirety, or in a reasonable time frame. Also the patient is able to safely use the walker and the patient?s mobility is sufficiently resolved with the use of the walker and cane has been ruled out.
--- NOTE | 2024-11-23 16:06 | PC.NURSE ---
Gallo catheter removed from patient at 1330. No issues noted and the catheter was removed intact without trauma. The patient then voided at approximately 1445. No issues voiding noted in the patient at this time.
--- NOTE | 2024-11-23 16:21 | PC.SS ---
CLIENT ASSOCIATE conducted bedside contact with the patient and patient's daughter. Confirmed d/c plan is to return home. CLIENT ASSOCIATE notified bedside nurse.
--- NOTE | 2024-11-23 16:24 | PC.SS ---
PT staff informed LEGAL EDITOR that patient will require rollator walker and oxygen upon discharge.
--- NOTE | 2024-11-23 16:27 | PC.SS ---
MEDICATION RECONCILIATION TECHNICIAN informed bedside nurse of need to conduct room air evaluation to submit oxygen referral.
--- NOTE | 2024-11-23 16:31 | PC.SS ---
DME referral submitted on [employer] platform. Results are pending.
--- NOTE | 2024-11-23 16:43 | PC.SS ---
DIRECTOR CHECK received call from [facility] staff confirming that vendor will provide patient oxygen and walker. ETA 6:30 pm today. DIRECTOR CHECK updated patient and bedside nurse.
--- NOTE | 2024-11-23 18:22 | ESDS_ITS ---
<Statement entered by Beth Johnson MD - 11/30/24 09:25> I reviewed above note and agree with findings and plans. I have also personally examined the patient with medicine team and went over assessment and plan with medical team including internet security specialist and resident physician. <Statement entered by Marcelo Terry MD - 11/24/24 15:23> I discussed with and supervised the internet security specialist physician involved in the care of this patient. Patient assessment and plan was discussed with entire medicine team, including my attending. I agree with the assessment and plan as documented by internet security specialist doctor. Patient care was discussed with my attending physician Dr. Elizabeth Terry, PGY-2 Planned Discharge Date 11/23/24 DS: Providers Provider Date of admission: 11/20/24 01:04 Primary care physician: Imtiaz Potter Admitting Provider: Power Bronson MD Attending Provider on Admission: Beth Johnson MD Consults: 11/20/24 07:21 Consult to Cardiology Routine Comment: New onset CHF Consulting Provider: Alverto Taylor 11/22/24 15:33 Referral Registered Dietitian Routine Comment: 11/23/24 09:39 Referral Physical Therapy Urgent Comment: Physician Instructions: Attending Provider on DC: Beth Johnson MD Discharging Provider: Beth Johnson MD Anticipated date of discharge: 11/23/24 DS: Diagnosis Problem List Completed Was Problem List Reviewed/Reconciled?: Yes Hospital Course Hospital Course Hospital course: Hospital Course: Ms. Anthony is a 74-year-old female with past medical history of hypertension, hyperlipidemia, type 2 diabetes mellitus and breast cancer status postmastectomy who presented to [facility] emergency department on 11/20/2024 for worsening shortness of breath and cough. Patient was septic on presentation, met 3/4 SIRS criteria, had 1 point qSOFA with underlying acute hypoxia. Patient CT scan of the chest showed bilateral pn eumonia and severe and left lower lobe, chest x-ray showed bilateral pneumonia. Patient was started on IV antibiotics, eventually patient was found to be fluid overloaded as well, echocardiogram showed preserved ejection fraction, 50 to 60% with diastolic dysfunction stage II. Patient found to have new onset CHF, patient had acute decompensated heart failure, was started on IV diuresis. Patient was found to have significant A1c elevation likely contributing to severe pneumonia, has uncontrolled diabetes mellitus. Eventually patient's blood cultures were negative, patient's respiratory status improved and patient's oxygen requirement decreased significantly. Further plan is to discharge patient home on p.o. Lasix 40 mg daily, Augmentin and doxycycline for 10 days. Patient instructed to follow-up with primary care physician in 1 week and follow-up with cardiology in 1 week. Patient will be discharged on supplemental oxygen, patient responded well to hospital treatment and patient is stable for discharge. Discharge Diagnosis: #Acute hypoxic respiratory failure, improving #Sepsis, resolved #Community acquired pneumonia #New onset HF exacerbation (diastolic stage 2 dysfunction with preserved EF 55- 60%) #Hypertriglyceridemia #Hyperlipidemia #Non-insulin dependent type II Diabetes mellitus #Hypertension #Normocytic anemia #Gastritis #Lactic acidosis, resolved Patient plan of care was discussed with the attending physician, Dr. Johnson and senior PGY 2 Dr[address] Terry. Praneeth Issa PGY1 Status at Discharge Overall status at discharge: patient is progressing back to baseline Time Spent with Patient Time attestation: Total time spent providing and/or coordinating discharge services: Greater than 35 minutes Time spent: Greater than 30 minutes Exam Vital Signs Temp Pulse Resp BP Pulse Ox O2 Del Method O2 Flow Rate 97.4 F 94 25 H 106/59 L 97 Nasal Cannula 1 11/23/24 16:00 11/23/24 16:00 11/23/24 16:00 11/23/24 16:00 11/23/24 16:00 11/23/24 16:00 11/23/24 16:00 FiO2 35 11/23/24 06:08 Narrative Exam Physical Exam General: Awake and in no acute distress. Conversational and non-toxic appearing. HEENT: Normocephalic, atraumatic, mucous membranes moist. Heart: Regular rate and rhythm, systolic murmur at the left sternal border. Lungs: Bilateral rhonchi and crackles. Abdomen: Soft, nondistended, nontender, positive bowel sounds. ?No guarding or rebound tenderness. Neurologic: Alert and oriented x3, no gross neurological deficit, and patient able to move all 4 extremities. Extremities: Minimal edema. Skin: No rash or ecchymoses. Discharge Plan Plan Patient Disposition: HOME (Self Care) Patient condition on transfer: Stable Care Plan Goals: Continue Lasix 40 mg p.o. daily. Continue doxycycline 100 mg twice daily and Augmentin for 10 days. Take 10 units of Insulin Glargine every night. Start Jardiance every day. Continue escitalopram 10mg daily. Continue Lipitor and fenofibrate daily. Follow-up with primary care physician in 1 week. Follow-up with church worker in 1 week. Restrict fluid intake to less than 2 L in a day. Return to the emergency department if symptoms worsen. Prescriptions/Referrals Prescriptions/Med Rec: New atorvastatin 40 mg tablet 40 mg PO QDAY 30 Days Qty: 30 0RF doxycycline hyclate 100 mg Tablet 100 mg PO BID 30 Days Qty: 60 0RF escitalopram oxalate 10 mg Tablet 10 mg PO QDAY 30 Days Qty: 30 0RF furosemide [Lasix] 40 mg tablet 40 mg PO QDAY 30 Days Qty: 30 0RF lidocaine 5 % Adhesive Patch,Medicated 1 patch top UD PRN (Reason: Pain) 15 Days Qty: 15 0RF Jardiance 10 mg tablet 10 mg PO QDAY 30 Days Qty: 30 0RF amoxicillin-pot clavulanate 875-125 mg tablet 1 tab PO BID 10 Days Qty: 20 0RF insulin glargine 100 unit/mL (3 mL) insulin pen 10 unit subcut QPM 30 Days Qty: 3 0RF Discontinued cefuroxime axetil 500 mg tablet 500 mg PO BID Qty: 14 0RF Referrals: Imtiaz Power [Primary Care Provider] - Alverto Taylor MD [Physician] - Patient/Caregiver Discharge Instructions Discharge Activity: as per physical therapy Education Materials: Diabetes and Heart Disease, Preventing Pneumonia, Coping with Heart Failure, Understanding Sepsis Print Language: Algerian Stand Alone Forms: Luann Award Info., Patient Portal Info Letter Discharge Order Discharge Orders: Discharge (Routine); Ordered 11/23/24 Ordered By: Praneeth Issa Quality Discharge Quality Measures VTE prophylaxis and sepsis
--- NOTE | 2024-11-23 18:23 | EKG_ITS ---
[facility] Test Date: 2024-11-23 Pat Name: JOVANY REYES [facility] Ophthalmic Technician: RADHA : 1950 Requested By: Michele Villavicencio Order Number: [id number] Reading MD: Michele Villavicencio Measurements Intervals [place] Rate: 93 P: 49 [place]: 149 QRS: -31 QRSD: 122 T: 88 QT: 381 QTc: 476 Interpretive Statements SINUS RHYTHM MARKED LEFT AXIS DEVIATION POSSIBLE RIGHT VENTRICULAR CONDUCTION DELAY SEPTAL MYOCARDIAL INFARCTION , PROBABLY OLD Compared to ECG 11/19/2024 23:23:00 Sinus tachycardia no longer present T-wave abnormality no longer present Possible ischemia no longer present Myocardial infarct finding still present /store/S0/[id number]
[2024-11-23] MEDS: ATORVASTATIN CALCIUM 20 MG TABLET 40 MG PO (20:10)
[2024-11-23] MEDS: cefTRIAXone/D5w 1gm IV premix 1 GM/50 ML BAG IV (20:11)
[2024-11-24] VITALS (9 sets, daily range): BP systolic 106–127; BP diastolic 59–78; PULSE 84–103; RESP 14–24; TEMP 36.1–36.7; O2SAT 90–100
[2024-11-24] MEDS: ALBUTEROL/IPRATROPIUM (Duoneb) RT SOL 3 ML NEBU INH ×2 (06:40→14:12)
--- NOTE | 2024-11-24 07:01 | PC.SS ---
AUTOMOTIVE PAINTER informed by bedside nurse that patient's discharge held due to patient experiencing V-Tach. Oxygen has been delivered to the patient at bedside.
[2024-11-24] MEDS: ESCITALOPRAM OXALATE 10 MG TABLET PO (08:31)
[2024-11-24] MEDS: Furosemide 40 MG TABLET PO (08:31)
[2024-11-24] MEDS: DOXYCYCLINE 100 MG TABLET PO (08:31)
[2024-11-24] MEDS: [UNRECOGNIZED DRUG - OTHER] PO (08:32)
[2024-11-24] MEDS: INSULIN GLARGINE (Lantus) 5 UNIT/0.05 ML (PER 5 UNITS) 12 UNIT SC (08:32)
[2024-11-24] MEDS: HEPARIN SOD INJ 5000 UNIT/ML VIAL SC (08:32)
[2024-11-24] MEDS: FENOFIBRATE 145 MG TABLET (NON-FORMULARY) PO (08:33)
--- NOTE | 2024-11-24 09:15 | PC.SS ---
SS update: plan is to d/c the patient home today. DME needs delivered.
--- NOTE | 2024-11-24 14:29 | ESDS_ITS ---
Planned Discharge Date 11/24/24 DS: Providers Provider Date of admission: 11/20/24 01:04 Primary care physician: Imtiaz Potter Admitting Provider: Power Bronson MD Attending Provider on Admission: Beth Johnson MD Consults: 11/20/24 07:21 Consult to Cardiology Routine Comment: New onset CHF Consulting Provider: Alverto Taylor 11/22/24 15:33 Referral Registered Dietitian Routine Comment: 11/23/24 09:39 Referral Physical Therapy Urgent Comment: Physician Instructions: Attending Provider on DC: Marcelo Terry MD Discharging Provider: Marcelo Terry MD DS: Diagnosis Problem List Completed Was Problem List Reviewed/Reconciled?: Yes Hospital Course Hospital Course Hospital course: Miss Anthony is a 74-year-old female with past medical history of hypertension, hyperlipidemia, type 2 diabetes mellitus and breast cancer status postmastectomy who presented to [facility] emergency department on 11/20/2024 for worsening shortness of breath and cough. Patient was septic on presentation, met 3/4 SIRS criteria, had 1 point qSOFA with underlying acute hypoxia. Patient CT scan of the chest showed bilateral pneumonia and severe and left lower lobe, chest x-ray showed bilateral pneumonia. Patient was started on IV antibiotics, eventually patient was found to be fluid overloaded as well, echocardiogram showed preserved ejection fraction, 50 to 60% with diastolic dysfunction stage II. Patient found to have new onset CHF, patient had acute decompensated heart failure, was started on IV diuresis. Patient was found to have significant A1c elevation likely contributing to severe pneumonia, has uncontrolled diabetes mellitus. Eventually patient's blood cultures were negative, patient's respiratory status improved and patient's oxygen requirement decreased significantly. Further plan is to discharge patient home on p.o. Lasix 40 mg daily, Augmentin and doxycycline for 10 days. Patient instructed to follow-up with primary care physician in 1 week and follow-up with cardiology in 1 week. Patient will be discharged on supplemental oxygen, patient responded well to hospital treatment and patient is stable for discharge. Discharge Diagnosis: #Acute hypoxic respiratory failure, improving #Sepsis, resolved #Community acquired pneumonia #New onset HF exacerbation (diastolic stage 2 dysfunction with preserved EF 55- 60%) #Hypertriglyceridemia #Hyperlipidemia #Non-insulin dependent type II Diabetes mellitus #Hypertension #Normocytic anemia #Gastritis #Lactic acidosis, resolved Discharge summary was reviewed with my attending Dr. Johnson. Marcelo Terry, PGY-2 Status at Discharge Overall status at discharge: patient is progressing back to baseline Time Spent with Patient Time attestation: Total time spent providing and/or coordinating discharge services: Time spent: Greater than 30 minutes Exam Vital Signs Temp Pulse Resp BP Pulse Ox O2 Del Method O2 Flow Rate 97.2 F 98 16 119/62 93 L Room Air 2 11/24/24 14:11/24/24 14:11/24/24 14:11/24/24 14:11/24/24 14:11/24/24 14:11/24/24 08:00 FiO2 2 11/24/24 06:40 Narrative Exam Physical Exam General: Awake and in no acute distress. Conversational and non-toxic appearing. HEENT: Normocephalic, atraumatic, mucous membranes moist. Heart: Regular rate and rhythm, systolic murmur at the left sternal border. Lungs: Bilateral rhonchi and crackles. Abdomen: Soft, nondistended, nontender, positive bowel sounds. ?No guarding or rebound tenderness. Neurologic: Alert and oriented x3, no gross neurological deficit, and patient able to move all 4 extremities. Extremities: Minimal edema. Skin: No rash or ecchymoses. Discharge Plan Plan Patient Disposition: HOME (Self Care) Patient condition on transfer: Stable Care Plan Goals: Continue Lasix 40 mg p.o. daily. Continue doxycycline 100 mg twice daily and Augmentin for 10 days. Take 10 units of Insulin Glargine every night. Start Jardiance every day. Continue escitalopram 10mg daily. Continue Lipitor and fenofibrate daily. Follow-up with primary care physician in 1 week. Follow-up with piece goods clerk in 1 week. Restrict fluid intake to less than 2 L in a day. Return to the emergency department if symptoms worsen. Prescriptions/Referrals Prescriptions/Med Rec: New atorvastatin 40 mg tablet 40 mg PO QDAY 30 Days Qty: 30 0RF doxycycline hyclate 100 mg Tablet 100 mg PO BID 30 Days Qty: 60 0RF escitalopram oxalate 10 mg Tablet 10 mg PO QDAY 30 Days Qty: 30 0RF furosemide [Lasix] 40 mg tablet 40 mg PO QDAY 30 Days Qty: 30 0RF lidocaine 5 % Adhesive Patch,Medicated 1 patch top UD PRN (Reason: Pain) 15 Days Qty: 15 0RF Jardiance 10 mg tablet 10 mg PO QDAY 30 Days Qty: 30 0RF amoxicillin-pot clavulanate 875-125 mg tablet 1 tab PO BID 10 Days Qty: 20 0RF insulin glargine 100 unit/mL (3 mL) insulin pen 10 unit subcut QPM 30 Days Qty: 3 0RF Discontinued cefuroxime axetil 500 mg tablet 500 mg PO BID Qty: 14 0RF Referrals: Imtiaz Power [Primary Care Provider] - Alverto Taylor MD [Physician] - Patient/Caregiver Discharge Instructions Discharge Activity: as per physical therapy Education Materials: Diabetes and Heart Disease, Preventing Pneumonia, Coping with Heart Failure, Understanding Sepsis Print Language: [place] Stand Alone Forms: Luann Award Info., Patient Portal Info Letter Discharge Order Discharge Orders: Discharge (Routine); Ordered 11/23/24 Ordered By: Praneeth Issa Quality Discharge Quality Measures VTE prophylaxis
== END 2024-11-24 15:59 | disposition home or self-care (01) | DRG 871 ==
LOC: SERX 11-20 01:14 → SERHOLD 11-20 02:09 → S2NX 11-20 04:06
PROVIDERS: Admitting Provider Internal Medicine; Emergency Provider Emergency Medicine; PCP Physician Assistant; Visit Provider Internal Medicine
DX: A41.89 Other specified sepsis (principal); I50.33 Acute on chronic diastolic (congestive) heart failure; J18.9 Pneumonia, unspecified organism; J96.01 Acute respiratory failure with hypoxia; J11.00 Influenza due to unidentified influenza virus with unspecified type of pneumonia; E87.1 Hypo-osmolality and hyponatremia; E87.20 Acidosis, unspecified; E78.1 Pure hyperglyceridemia; I11.0 Hypertensive heart disease with heart failure; R65.20 Severe sepsis without septic shock; D64.89 Other specified anemias; K29.70 Gastritis, unspecified, without bleeding; Z79.84 Long term (current) use of oral hypoglycemic drugs; Z85.3 Personal history of malignant neoplasm of breast; Z90.10 Acquired absence of unspecified breast and nipple; E11.65 Type 2 diabetes mellitus with hyperglycemia; E87.6 Hypokalemia; Z79.4 Long term (current) use of insulin; Z79.899 Other long term (current) drug therapy; Z87.891 Personal history of nicotine dependence
CPT/HCPCS: 36415; 36600; 71045; 71250; 80053; 80061; 80069; 81001; 82803; 83036; 83540; 83550; 83605; 83615; 83690; 83735; 83880; 84100; 84145; 84443; 84484; 85025; 85046; 85610; 85730; 86331; 86635; 87040; 87086; 87634; 87811; 89220; 93005; 93306; 94640; 94660; 94664; 94667; 96365; 96375; 97162; 99285; A9270; J0456; J0696; J1643; J1815; J1940; J2919; J3475; J7050